=== PATIENT | female | born 1955 | race African-American/Black ===

== ENCOUNTER → 2017-09-19 | Outpatient (CLI) | payer OTHER ==
[~2017-09-19] MED LIST: ALBUTEROL SULFATE 0.083% NEB 2.5 MG/3 ML AMPUL NEB ONE
--- NOTE | 2017-09-19 13:44 | RADIOLOGY REPORT (SQ) ---
EXAM DESCRIPTION: CHEST PA/LAT COMPLETED DATE/TIME: 09/19/2017 1:18 pm REASON FOR STUDY: COUGH (R05) COMPARISON: None. EXAM PARAMETERS: NUMBER OF VIEWS: two views TECHNIQUE: Digital Frontal and Lateral radiographic views of the chest acquired. RADIATION DOSE: NA LIMITATIONS: none FINDINGS: LUNGS AND PLEURA: Diffuse pulmonary vascular congestion. No pleural effusions. No alveol ar infiltrates worrisome for edema or pneumonia. MEDIASTINUM AND HILAR STRUCTURES: Prominent central pulmonary arteries. HEART AND VASCULAR STRUCTURES: Moderate to marked cardiomegaly BONES: Diffuse thoracic spondylotic change HARDWARE: None in the chest. OTHER: No other significant finding. IMPRESSION: Moderate to marked cardiomegaly Diffuse pulmonary vascular congestion without alveolar or interstitial edema, or pleural effusions. TECHNICAL DOCUMENTATION: JOB ID: [id number] [employer]- All Rights Reserved
--- NOTE | 2017-09-19 15:58 | PULMONARY FUNCTION TEST ---
DATE OF SERVICE: 09/19/2016 THE VITAL CAPACITY IS SEVERELY DECREASED. THE EXPIRATORY FLOW RATES ARE SEVERELY DECREASED. THE FEV1/VC IS 73%, PREDICTED: 83% AFTER BRONCHODILATOR, EXPIRATORY FLOW RATES SHOW NO SIGNIFICANT CHANGE. IMPRESSION: GOOD PATIENT EFFORT. VERY SEVERE OBSTRUCTIVE DEFECT. A CO- EXISTING RESTRICTIVE COMPONENT CANNOT BE EXCLUDED WITHOUT LUNG VOLUME MEASUREMENTS. CC: PAU GALO MD > MTDD
== END ==
LOC: RT 11:42
PROVIDERS: ATTEND Family Medicine
DX: R09.02 Hypoxemia (principal); R06.02 Shortness of breath; R09.1 Pleurisy; R05 Cough; R53.83 Other fatigue
CPT/HCPCS: 71046; 94060

== ENCOUNTER → 2018-12-12 | Outpatient (CLI) | payer OTHER ==
--- NOTE | 2018-12-17 13:00 | WOMENS IMAGING REPORT ---
EXAM DESCRIPTION: 3D SCREENING MAMMO BILAT COMPLETED DATE/TIME: 12/17/2018 11:07 am REASON FOR STUDY: Z12.31 ROUTINE 3D BILATERAL SCREENING Z12.31 ENCNTR SCREEN MAMMOGRAM FOR MALIGNAN T NEOPLASM OF ANTONIO COMPARISON: 03/29/2016 and 11/19/2014. TECHNIQUE: Standard craniocaudal and mediolateral oblique views of each breast recorded using digita l acquisition and breast tomosynthesis. LIMITATIONS: None. FINDINGS: No masses, calcifications or architectural distortion. No areas of suspicion. Read with the assistance of CAD. .[facility] - R2 Cenova Version 1.3 .[facility] - R2 Cenova Version 2.1 .[facility] - R2 Cenova Version 2.4 .[facility] [place] Cenova Version 2.4 .[facility] - R2 [employer] Work[employer] Version 9.2 IMPRESSION: NORMAL MAMMOGRAM. BIRADS 1. BREAST DENSITY: b. There are scattered areas of fibroglandular density. BIRAD: 1 NEGATIVE RECOMMENDATION: ROUTINE SCREENING COMMENT: The patient has been notified of the results by letter per SA requirements. Additional no tification policies are in place for contacting patient with suspicious or incomplete findings. Quality ID #[id number]: The [employer] recommends an annual screening mammogram for women aged 40 years or over. This facility utilizes a reminder system to ensure that all patients receive reminder letters, and/or direct phone calls for appointments. This includes reminders for routine scr eening mammograms, diagnostic mammograms, or other Breast Imaging Interventions when appropriate. Th is patient will be placed in the appropriate reminder system. The [employer] (ACR) has developed recommendations for screening MRI of the breast s in certain patient populations, to be used in conjunction with mammography. Breast MRI surveillanc e may be appropriate for women with more than 20% lifetime risk of developing breast cancer as deter mined by genetic testing, significant family history of the disease, or history of mantle radiation f or Hodgkins Disease. ACR Practice Guidelines 2008. DBT Technology DBT is a type of tomographic mammography. With conventional mammography, overlapping breast tissue ma y make lesions difficult to detect, even with good compression. DBT uses an x-ray tube that rotates a round the breast, taking images at different angles. These images are then combined to create thin sl ices of the breast that the radiologist can view as a 3D reconstruction. The Stream5 unit can perform full-field digital mammograms (2D imaging); or DBT (3D imaging); or both, in a combination mode that quickly performs both the mammogram and the tomosynthesis scan while the breast is still compressed. PQRS 6045F: Fluoroscopic imaging is not utilized for breast tomosynthesis. TECHNICAL DOCUMENTATION: FINDING NUMBER: (1) ASSESSMENT: (1) JOB ID: [id number] [employer]- All Rights Reserved Reading location - IP/workstation name: [email or web address]
== END ==
LOC: WI 14:56
PROVIDERS: ATTEND Family Medicine
DX: Z12.31 Encounter for screening mammogram for malignant neoplasm of breast (principal)
CPT/HCPCS: 77063; 77067

== ENCOUNTER 2019-02-10 09:38 | Inpatient (IN) | payer OTHER ==
--- NOTE | 2019-02-10 10:25 | ER Document Report ---
ED General - General Chief Complaint: Trouble Walking Stated Complaint: FEELING OFF BALANCE Time Seen by Provider: 02/10/19 10:07 Primary Care Provider: PAU BYRNES MD [Primary Care Provider] - Follow up as needed Information source: Patient Notes: Patient is a 63-year-old female who states for the last 4 to 5 days her "energy has been off". She states some mornings she feels as if she has a lot of energy and on the morning she feels very sluggish. Patient denies any and all weakness , numbness, gait instability, feelings of the room spinning, or lightheadedness. She states that when she rode on the triage note "off balance" she meant "my whole body". Patient does have a history as recorded including being on oxygen at 3 L at baseline for the last year. She states she has no lung disease including COPD or asthma, but she states that she was noticed to have a decreased oxygen saturation when ambulating by the primary care physician Dr. Byrnes. Patient denies any headache, neck pain, chest pain, palpitations, abdominal pain, recent runny nose, congestion, cough, vomiting, or diarrhea. TRAVEL OUTSIDE OF THE [place] IN LAST 30 DAYS: No - Related Data Allergies/Adverse Reactions: No Known Allergies Allergy (Verified 02/10/19 09:39) Past Medical History - Social History Smoking Status: Never Smoker Family History: Reviewed & Not Pertinent Pulmonary Medical History: Reports: Hx COPD - Oxygen dependance at 3lpm Past Surgical History: Reports: Hx Thyroid Surgery - Thyroidectomy Review of Systems - Review of Systems Constitutional: denies: Fever EENT: denies: Eye discharge, Nose discharge Cardiovascular: denies: Chest pain, Palpitations Respiratory: denies: Short of breath Gastrointestinal: denies: Vomiting Genitourinary: denies: Dysuria Musculoskeletal: denies: Leg swelling Skin: Other - no hives. denies: Rash Neurological/Psychological: Other - no slurred speech -: Yes All other systems reviewed and negative Physical Exam - Vital signs Vitals: Temp Pulse Resp BP Pulse Ox 98.3 F 75 18 157/84 H 92 02/10/19 09:44 02/10/19 09:44 02/10/19 09:44 02/10/19 09:44 02/10/19 09:44 Notes: Reviewed vital signs and nursing note as charted by RN. CONSTITUTIONAL: Alert and oriented and responds appropriately to questions. Well-appearing; well-nourished HEAD: Normocephalic; atraumatic EYES: PERRL; Conjunctivae clear, full extraocular range of motion; no nystagmus; sclerae non-icteric ENT: Normal nose; no rhinorrhea; moist mucous membranes; pharynx without lesions noted NECK: Supple without meningismus; non-tender; no carotid bruit; no cervical lymphadenopathy, no masses CARD: Regular rate and rhythm; no murmurs; symmetric distal pulses RESP: Normal chest excursion without splinting or tachypnea; breath sounds clear and equal bilaterally; no wheezes, no rhonchi, no rales ABD/GI: Normal bowel sounds; non-distended; soft, non-tender; no palpable organomegaly or masses BACK: The back appears normal and is non-tender to palpation EXT: Normal ROM in all joints; non-tender to palpation; patient has some bilateral pierre induration with no obvious edema SKIN: No acute lesions noted NEURO: CN 2-12 intact; 5/5 bilateral upper and lower extremity strength with sensation intact to light touch PSYCH: The patient's mood and manner are appropriate. Grooming and personal hygiene are appropriate. Course - Re-evaluation Re-evalutation: 02/10/19 10:24 Given the history, physical, and vital signs as recorded, I will obtain basic labs, TSH level, troponin, EKG, and provide an x-ray of the chest. Patient has no focal neurological deficits, carotid bruits, and denies any weakness, numbness, lightheadedness, or vertigo. I do not believe any CT or MRI imaging is necessary at this moment. EKG shows heart of 69, normal sinus rhythm, normal axis, no ST elevation or depression. Incomplete right bundle branch block with an inverted T wave in lead V2 02/10/19 11:20 Initial labs as recorded. Patient denies any current symptomatology. 02/10/19 12:23 Troponin and labs as recorded. Elevated CO2. 02/10/19 13:09 Given the very elevated CO2, I am concerned about some increased lethargy secondary to hypercarbia. BNP is normal. X-ray of the chest as recorded. We will place the patient on BiPAP and order an ABG and reassess. - Vital Signs Vital signs: Temp Pulse Resp BP Pulse Ox 98.3 F 75 23 H 126/67 H 99 02/10/19 09:44 02/10/19 09:44 02/10/19 13:00 02/10/19 13:01 02/10/19 12:01 - Laboratory Result Diagrams: 02/10/19 11:15 02/10/19 11:15 Laboratory results interpreted by me: 02/10/19 02/10/19 02/10/19 11:15 11:15 11:15 Hgb 11.6 L Hct 35.6 L VBG pCO2 VBG HCO3 Sodium 145.1 H Chloride 91 L Carbon Dioxide 47 H* TSH 5.98 H 02/10/19 12:35 Hgb Hct VBG pCO2 97.3 H* VBG HCO3 51.9 H Sodium Chloride Carbon Dioxide TSH Critical Care Note - Critical Care Note Total time excluding time spent on procedures (mins): 35 Discharge - Discharge Clinical Impression: Hypercarbia, Lethargy Condition: Fair Disposition: ADMITTED INPATIENT Admitting Provider: Belen (Hospitalist) Unit Admitted: IMCU Referrals: PAU BYRNES MD [Primary Care Provider] - Follow up as needed
--- NOTE | 2019-02-10 10:58 | RADIOLOGY REPORT (SQ) ---
EXAM DESCRIPTION: CHEST 2 VIEWS COMPLETED DATE/TIME: 02/10/2019 10:36 am REASON FOR STUDY: 10; dizzi; lightheaded COMPARISON: 09/19/2017. NUMBER OF VIEWS: Two views. TECHNIQUE: Frontal and lateral radiographic views of the chest acquired. LIMITATIONS: None. FINDINGS: LUNGS AND PLEURA: No opacities, masses or pneumothorax. No pleural effusion. MEDIASTINUM AND HILAR STRUCTURES: No masses or contour abnormality. HEART AND VASCULAR STRUCTURES: Cardiac enlargement. Vascular congestion. BONES: No acute findings. Degenerative changes in the spine. HARDWARE: None in the chest. OTHER: No other significant finding. IMPRESSION: CARDIAC ENLARGEMENT. VASCULAR CONGESTION. TECHNICAL DOCUMENTATION: JOB ID: [id number] [employer]- All Rights Reserved Reading location - IP/workstation name: [email or web address]
[2019-02-10 11:29] LABS: ABSOLUTE EOSINOPHILS # (AUTO) 0.1 10^3/uL (0.0-0.6); ABSOLUTE LYMPHOCYTES (AUTO) 0.7 10^3/uL (0.5-4.7); ABSOLUTE MONOCYTES (AUTO) 0.4 10^3/uL (0.1-1.4); ABSOLUTE NEUT (AUTO) 3.7 10^3/uL (1.7-8.2); BASOPHILS % (AUTO) 0.4 % (0-2); EOSINOPHILS % (AUTO) 2.1 % (0-6); HEMATOCRIT 35.6 % (36.0-47.0); HEMOGLOBIN 11.6 g/dL (12.0-15.5); MEAN CORPUSCULAR HEMOGLOBIN 30.7 pg (27.0-33.4); MEAN CORPUSCULAR HGB CONC 32.7 g/dL (32.0-36.0); MEAN CORPUSCULAR VOLUME 94 fl (80-97); MONOCYTES % (AUTO) 7.9 % (3-13); PLATELET COUNT 283 10^3/uL (150-450); RED BLOOD COUNT 3.79 10^6/uL (3.72-5.28); RED CELL DISTRIBUTION WIDTH 13.7 % (11.5-14.0); SEGMENTED NEUTROPHILS % (AUTO) 74.6 % (42-78); TOTAL CELLS COUNTED % (AUTO) 100 %; WHITE BLOOD COUNT 4.9 10^3/uL (4.0-10.5)
[2019-02-10 11:55] LABS: BLOOD UREA NITROGEN 13 mg/dL (7-20); CALCIUM 8.9 mg/dL (8.4-10.2); CHLORIDE 91 mmol/L (98-107); GLUCOSE 94 mg/dL (75-110); POTASSIUM 3.9 mmol/L (3.6-5.0); SODIUM 145.1 mmol/L (137-145)
[2019-02-10 12:08] LABS: ANION GAP 7 (5-19)
[2019-02-10 12:09] LABS: CARBON DIOXIDE 47 mmol/L (22-30)
[2019-02-10 12:53] LABS: VENOUS BLOOD BASE EXCESS 20.9 mmol/L; VENOUS BLOOD HCO3 51.9 mmol/L (20-32); VENOUS BLOOD PH 7.35 (7.30-7.42)
[2019-02-10 12:59] LABS: VENOUS BLOOD PCO2 97.3 mmHg (35-63)
--- NOTE | 2019-02-10 13:12 | EKG REPORT ---
SEVERITY:- ABNORMAL ECG - SINUS RHYTHM PROBABLE LEFT ATRIAL ABNORMALITY INCOMPLETE RIGHT BUNDLE BRANCH BLOCK : Confirmed by: Cristóbal Murry MD 10-Feb-2019 13:11:28
[2019-02-10 13:51] LABS: ARTERIAL BLOOD BASE EXCESS 18.3 mmol/L; ARTERIAL BLOOD FIO2 3L; ARTERIAL BLOOD H2CO3 2.05 mmol/L (1.05-1.35); ARTERIAL BLOOD HCO3 45.9 mmol/L (20-24); ARTERIAL BLOOD O2 SATURATION 96.6 % (94-98); ARTERIAL BLOOD PCO2 68.2 mmHg (35-45); ARTERIAL BLOOD PH 7.45 (7.35-7.45); ARTERIAL BLOOD PO2 87.3 mmHg (80-100)
[2019-02-10 13:54] LABS: APPEARANCE,URINE SLIGHTLY-CLOUDY; BILIRUBIN,URINE NEGATIVE (NEGATIVE); COLOR,URINE YELLOW; GLUCOSE, URINE NEGATIVE (NEGATIVE); KETONES,URINE NEGATIVE (NEGATIVE); LEUKOCYTE ESTERASE,URINE NEGATIVE (NEGATIVE); NITRITE,URINE NEGATIVE (NEGATIVE); PROTEIN,URINE NEGATIVE (NEGATIVE)
[2019-02-10] MEDS ORDERED: HYDRALAZINE HCL INJ/PF 20 MG/1 ML SDV IV PRN (14:16)
--- NOTE | 2019-02-10 14:36 | PDOC H&P ---
History of Present Illness Admission Date/PCP: 02/10/19 13:31 PAU GALO MD Patient complains of: increased sleepiness History of Present Illness: ROSLYN RANGEL is a 63 year old female with a PMH of sleep apnea-untreated and not on CPAP, HTN, hypothyroidism and questionable COPD who was brought into to increased sleepiness. Patient says that she cannot really describe what she is feeling but she feels like she is "out of her comfort zone" in the past 4 days. She denies dizziness, shortness of breath or chest pain. She denies weakness. Her sister who is on the bedside says that she has noticed patient has been more sleepy than usual and has been less conversant at home. Upon encounter, patient awake and oriented x4. In the ER, work-up was remarkable for a VBG PCO2 of 97. Past Medical History Pulmonary Medical History: Reports: Chronic Obstructive Pulmonary Disease (COPD) - Oxygen dependance at 3lpm Social History Smoking Status: Never Smoker Family History Family History: Reviewed & Not Pertinent Parental Family History Reviewed: Yes - No premature CAD Children Family History Reviewed: No Sibling(s) Family History Reviewed.: No Medication/Allergy Allergies/Adverse Reactions: No Known Allergies Allergy (Verified 02/10/19 09:39) Review of Systems All systems: reviewed and no additional remarkable complaints except as stated - As mentioned in HPI Physical Exam Vital Signs: Temp Pulse Resp BP Pulse Ox 98.3 F 75 14 124/102 H 92 02/10/19 09:44 02/10/19 09:44 02/10/19 13:24 02/10/19 13:24 02/10/19 13:24 Intake & Output 02/09/19 02/10/19 02/11/19 06:59 06:59 06:59 Weight 348 lb 1.758 oz General appearance: PRESENT: no acute distress, well-developed, well-nourished Head exam: PRESENT: atraumatic, normocephalic Eye exam: PRESENT: conjunctiva pink, EOMI, PERRLA. ABSENT: scleral icterus Ear exam: PRESENT: normal external ear exam Neck exam: ABSENT: carotid bruit, JVD, lymphadenopathy, thyromegaly Respiratory exam: PRESENT: clear to auscultation yessenia. ABSENT: rales, rhonchi, wheezes Cardiovascular exam: PRESENT: RRR. ABSENT: diastolic murmur, rubs, systolic murmur Pulses: PRESENT: normal dorsalis pedis pul GI/Abdominal exam: PRESENT: normal bowel sounds, soft. ABSENT: distended, guarding, mass, organolmegaly, rebound, tenderness Rectal exam: PRESENT: deferred Neurological exam: PRESENT: alert, awake, oriented to person, oriented to place, oriented to time, oriented to situation, CN II-XII grossly intact. ABSENT: motor sensory deficit Results Laboratory Results: 02/10/19 11:15 02/10/19 11:15 02/10/19 02/10/19 02/10/19 11:15 11:15 11:15 WBC 4.9 RBC 3.79 Hgb 11.6 L Hct 35.6 L MCV 94 MCH 30.7 MCHC 32.7 RDW 13.7 Plt Count 283 Seg Neutrophils % 74.6 Lymphocytes % 15.0 Monocytes % 7.9 Eosinophils % 2.1 Basophils % 0.4 Absolute Neutrophils 3.7 Absolute Lymphocytes 0.7 Absolute Monocytes 0.4 Absolute Eosinophils 0.1 Absolute Basophils 0.0 Carbonic Acid HCO3/H2CO3 Ratio ABG pH ABG pCO2 ABG pO2 ABG HCO3 ABG O2 Saturation ABG Base Excess VBG pH VBG pCO2 VBG HCO3 VBG Base Excess FiO2 Sodium 145.1 H Potassium 3.9 Chloride 91 L Carbon Dioxide 47 H* Anion Gap 7 BUN 13 Creatinine 0.59 Est GFR ( Amer) > 60 Est GFR (Non-Af Amer) > 60 Glucose 94 Calcium 8.9 TSH 5.98 H Urine Color Urine Appearance Urine pH Ur Specific [place] Urine Protein Urine Glucose (UA) Urine Ketones Urine Blood Urine Nitrite Ur Leukocyte Esterase Urine WBC (Auto) Urine RBC (Auto) 02/10/19 02/10/19 02/10/19 12:35 13:32 13:40 WBC RBC Hgb Hct MCV MCH MCHC RDW Plt Count Seg Neutrophils % Lymphocytes % Monocytes % Eosinophils % Basophils % Absolute Neutrophils Absolute Lymphocytes Absolute Monocytes Absolute Eosinophils Absolute Basophils Carbonic Acid 2.05 H HCO3/H2CO3 Ratio 22:1 ABG pH 7.45 ABG pCO2 68.2 H ABG pO2 87.3 ABG HCO3 45.9 H ABG O2 Saturation 96.6 ABG Base Excess 18.3 VBG pH 7.35 VBG pCO2 97.3 H* VBG HCO3 51.9 H VBG Base Excess 20.9 FiO2 3L Sodium Potassium Chloride Carbon Dioxide Anion Gap BUN Creatinine Est GFR ( Amer) Est GFR (Non-Af Amer) Glucose Calcium TSH Urine Color YELLOW Urine Appearance SLIGHTLY-CLOUDY Urine pH 9.0 Ur Specific Clayton 1.020 Urine Protein NEGATIVE Urine Glucose (UA) NEGATIVE Urine Ketones NEGATIVE Urine Blood NEGATIVE Urine Nitrite NEGATIVE Ur Leukocyte Esterase NEGATIVE Urine WBC (Auto) 3 Urine RBC (Auto) 1 02/10/19 02/10/19 11:15 11:15 Troponin I < 0.012 NT-Pro-B Natriuret Pep 141 Impressions: Chest X-Ray 02/10/19 10:08 IMPRESSION: CARDIAC ENLARGEMENT. VASCULAR CONGESTION. Assessment and Plan - Diagnosis (1) Acute hypercapnic respiratory failure Is this a current diagnosis for this admission?: Yes Plan: Likely secondary to untreated chronic GILMA. As mentioned, patient says that she supposed to be on CPAP but is unable to afford the co-pay hence is not on any at home. ABG ordered. Will place patient on BiPAP. Will consult discharge planning for assistance. Questionable COPD. Patient denies prior COPD or asthma or prior smoking. She says her PCP suspected that she has COPD. Will do a bedside spirometry. She will need a possible PFT outpatient. (2) Lethargy Is this a current diagnosis for this admission?: Yes Plan: Likely related to hypercarbia. (3) Hypothyroidism Is this a current diagnosis for this admission?: Yes Plan: Resume Synthroid once home doses verified. (4) Hypertension Is this a current diagnosis for this admission?: Yes Plan: Resume home meds once verified. (5) Pulmonary congestion Is this a current diagnosis for this admission?: Yes Plan: Chest x-ray shows possible congestion. She has clear breath sounds at the moment. BNP normal. Give her low-dose Lasix. Will pursue routine echo to evaluate cardiac function due to long-standing untreated GILMA. - Time Time Spent with patient: 25-34 minutes
[2019-02-10 14:37] LABS: FREE T3 2.54 pg/mL (2.77-5.27); FREE T4 (FREE THYROXINE) 0.72 ng/dL (0.78-2.19)
--- NOTE | 2019-02-10 14:42 | ADVANCED CARE ---
- Diagnosis (1) Acute hypercapnic respiratory failure Diagnosis Current: Yes (2) Hypercarbia Diagnosis Current: Yes (3) Hypertension Diagnosis Current: Yes (4) Hypothyroidism Diagnosis Current: Yes (5) Lethargy Diagnosis Current: Yes (6) Pulmonary congestion Diagnosis Current: Yes Attendance: Discussed with patient. She says she is a full code and prefers chest compressions, defibrillation and mechanical ventilation if the need arises. She says that her daughter, Lauren is her surrogate decision maker. Resuscitation Status: Full Code
[2019-02-10] MEDS: HEPARIN SOD (PORCINE) 5,000 UNIT/ML 1 ML SYRINGE SUBCUT SCH (21:24)
[2019-02-10] MEDS: FUROSEMIDE INJ/PF 20 MG/2 ML SDV IV SCH (21:24)
[2019-02-11] MEDS: FUROSEMIDE INJ/PF 20 MG/2 ML SDV IV SCH ×2 (09:52→22:07)
[2019-02-11] MEDS: HEPARIN SOD (PORCINE) 5,000 UNIT/ML 1 ML SYRINGE SUBCUT SCH ×2 (09:56→22:07)
--- NOTE | 2019-02-11 15:34 | PDOC PROGRESS REPORT ---
Subjective Progress Note for:: 02/11/19 Subjective:: 63 year old female with a PMH of sleep apnea-untreated and not on CPAP, HTN, hypothyroidism and questionable COPD who was brought into to increased sleepiness. Patient says that she cannot really describe what she is feeling but she feels like she is "out of her comfort zone" in the past 4 days. She denies dizziness, shortness of breath or chest pain. She denies weakness. Her sister who is on the bedside says that she has noticed patient has been more sleepy than usual and has been less conversant at home. Upon encounter, patient awake and oriented x4. In the ER, work-up was remarkable for a VBG PCO2 of 97. 02/11/20197745-60-vzpe-old female with history of morbid obesity, sleep apnea noncompliant with CPAP admitted with increasing sleepiness VBG done in the emergency room shows PCO2 of 97. Patient said this morning she is feeling better. Requesting for physical therapy. she uses 3 L of oxygen at home. no Acute events in the last 24 hours and patient is afebrile. Reason For Visit: ACUTE HYPERCAPNIC RESPIRATORY FAILURE Physical Exam Vital Signs: Temp Pulse Resp BP Pulse Ox 98.3 F 65 24 H 163/85 H 100 02/11/19 12:00 02/11/19 12:00 02/11/19 12:00 02/11/19 12:00 02/11/19 12:00 Intake & Output 02/10/19 02/11/19 02/12/19 06:59 06:59 06:59 Intake Total 500 Balance 500 Weight 162.6 kg General appearance: PRESENT: no acute distress, obese Head exam: PRESENT: atraumatic Eye exam: PRESENT: PERRLA Neck exam: ABSENT: carotid bruit, JVD, lymphadenopathy, thyromegaly Respiratory exam: PRESENT: decreased breath sounds Cardiovascular exam: PRESENT: RRR. ABSENT: diastolic murmur, rubs, systolic murmur GI/Abdominal exam: PRESENT: normal bowel sounds, soft. ABSENT: distended, guarding, mass, organolmegaly, rebound, tenderness Rectal exam: PRESENT: deferred Extremities exam: PRESENT: full ROM, other - Chronic skin changes in the lower extremities with overgrown toenails.. ABSENT: calf tenderness, clubbing, pedal edema Neurological exam: PRESENT: alert, awake, oriented to person, oriented to place, oriented to time, oriented to situation, CN II-XII grossly intact. ABSENT: motor sensory deficit Psychiatric exam: PRESENT: appropriate affect, normal mood. ABSENT: homicidal ideation, suicidal ideation Results Laboratory Results: 02/10/19 11:15 02/10/19 11:15 02/10/19 02/10/19 11:15 11:15 Troponin I < 0.012 NT-Pro-B Natriuret Pep 141 Impressions: Chest X-Ray 02/10/19 10:08 IMPRESSION: CARDIAC ENLARGEMENT. VASCULAR CONGESTION. Assessment and Plan - Diagnosis (1) Acute hypercapnic respiratory failure Is this a current diagnosis for this admission?: Yes Plan: Likely secondary to untreated chronic GILMA. As mentioned, patient says that she supposed to be on CPAP but is unable to afford the co-pay hence is not on any at home. ABG ordered. Will place patient on BiPAP. Will consult discharge planning for assistance. Questionable COPD. Patient denies prior COPD or asthma or prior smoking. She says her PCP suspected that she has COPD. Will do a bedside spirometry. She will need a possible PfT outpatient. \\ 02/11/2019-patient admitted with acute hypercapnic respiratory failure with PCO2 of 97. It most likely secondary to morbid obesity associated with hypoventilation syndrome and noncompliance with CPAP. Presently she is using CPAP patient was strongly advised to use CPAP at home upon discharge. (2) Lethargy Is this a current diagnosis for this admission?: Yes Plan: Likely related to hypercarbia. 02/11/2019-lethargy due to hypercapnia is resolved. Patient is alert awake oriented communicating well. (3) Hypertension Is this a current diagnosis for this admission?: Yes Plan: Resume home meds once verified. 02/11/2019-patient's blood pressure today is 149/67 borderline high systolic blood pressure. Plan is to continue to closely monitor the blood pressure and to resume the home medications. (4) Hypothyroidism Is this a current diagnosis for this admission?: Yes Plan: Resume Synthroid once home doses verified. 02/11/2019-TSH is 5.98. Close to the normal limits. Plan to continue the present dose of levothyroxine. (5) Hypercarbia Is this a current diagnosis for this admission?: Yes Plan: 02/11/2019-hypercapnia most likely secondary to morbid obesity associated with hypoventilation syndrome. Patient needs to be compliant with CPAP machine at home. (6) Morbid obesity Is this a current diagnosis for this admission?: No Plan: 02/11/2019-patient's BMI is more than 61 diet exercise weight loss lifestyle modifications are discussed with the patient. Dietary consult is going to be requested. (7) Pulmonary congestion Is this a current diagnosis for this admission?: Yes Plan: Chest x-ray shows possible congestion. She has clear breath sounds at the moment. BNP normal. Give her low-dose Lasix. Will pursue routine echo to evaluate cardiac function due to long-standing untreated GILMA. 02/11/2019-chest x-ray initially shows pulmonary congestion presently on Lasix 20 mg IV twice a day to repeat the chest x-ray tomorrow. - Time Time Spent with patient: 25-34 minutes Anticipated discharge: Home
--- NOTE | 2019-02-11 16:31 | RADIOLOGY REPORT (SQ) ---
EXAM DESCRIPTION: CHEST SINGLE VIEW COMPLETED DATE/TIME: 02/11/2019 4:18 pm REASON FOR STUDY: pulm congestion COMPARISON: 02/10/2019 EXAM PARAMETERS: NUMBER OF VIEWS: One view. TECHNIQUE: Single frontal radiographic view of the chest acquired. RADIATION DOSE: NA LIMITATIONS: None. FINDINGS: LUNGS AND PLEURA: No opacities, masses or pneumothorax. No pleural effusion. MEDIASTINUM AND HILAR STRUCTURES: No masses. Contour normal. HEART AND VASCULAR STRUCTURES: Cardiomegaly, stable finding. Stable appearing pulmonary vascular co ngestion. Heart normal in size. Normal vasculature. BONES: No acute findings. HARDWARE: None in the chest. OTHER: No other significant finding. IMPRESSION: 1. As on the prior examination dated 02/10/2019, cardiomegaly. Stable appearing pulmona ry vascular congestion. TECHNICAL DOCUMENTATION: JOB ID: [id number] [employer]- All Rights Reserved Reading location - IP/workstation name: [email or web address]
--- NOTE | 2019-02-11 18:27 | XCELERA REPORT ---
[address] [address] Transthoracic Echocardiogram Report Name: ROSLYN RANGEL Age: 63 yrs Gender: Female : 1955 Patient Status: [facility] Date: 02/11/2019 10:01 AM Height: 64 in Weight: 358 lb BSA: 2.5 m2 Reason For Study: assess LVEF Ordering Physician: ERENDIRA JACOB Performed By: Pamela Pro Interpretation Summary Study quality fair. Lack of contrast opacification limits evaluation for intracardiac mass/thrombus. Mild LVH with normal LVEF at 55-60%. The right ventricle is normal in size and function. The transmitral spectral Doppler flow pattern is abnormal for age The aortic valve opens well. There is a mild amount of mitral regurgitation There is a trace amount of tricuspid regurgitation Right ventricular systolic pressure is normal. The aortic root is normal size. The inferior vena cava appeared normal MMode/2D Measurements & Calculations RVDd: 3.3 cm LVIDd: 5.4 cm FS: 30.4 % Ao root diam: IVSd: 1.0 cm LVIDs: 3.8 cm EDV(Teich): 3.0 cm LVPWd: 1.2 cm 143.3 ml Ao root area: ESV(Teich): 61.2 ml 7.0 cm2 EF(Teich): 57.3 % EDV(MOD-sp4): SV(MOD-sp4): 110.1 ml 67.2 ml ESV(MOD-sp4): 42.9 ml EF(MOD-sp4): 61.0 % Doppler Measurements & Calculations MV E max golden: MV dec slope: Ao V2 max: LV V1 max P.1 cm/sec 173.9 cm/sec 6.5 mmHg MV A max golden: 558.9 cm/sec2 Ao max P.1 mmHgLV V1 max: 100.7 cm/sec MV dec time: 127.1 cm/sec MV E/A: 1.3 0.23 sec LV dP/dt: 1890 mmHg/s PA V2 max: TR max golden: Pulm Sys Golden: 116.3 cm/sec 199.3 cm/sec 54.5 cm/sec PA max P.4 mmHgTR max P.9 mmHg Pulm Perales Golden: 57.4 cm/sec Pulm A Revs Golden: 19.3 cm/sec Pulm A Revs Dur: 0.11 sec Pulm S/D: 0.95 Left Ventricle The left ventricle is mildly dilated. There is mild concentric left ventricular hypertrophy. The left ventricular ejection fraction is normal. LV EF is 55-60%. The transmitral spectral Doppler flow pattern is abnormal for age. Right Ventricle The right ventricle is normal in size and function. Atria The right atrium is normal. The left atrial size is normal. Mitral Valve There is moderate mitral leaflet calcification. There is a mild amount of mitral regurgitation. Aortic Valve The aortic valve is not well visualized secondary to technical limitations. The aortic valve is mildly calcified. The aortic valve opens well. There is a peak gradient of 14.5 mm of Hg. Tricuspid Valve The tricuspid valve is not well visualized secondary to technical limitations. There is a trace amount of tricuspid regurgitation. Right ventricular systolic pressure is normal. Pulmonic Valve The pulmonic valve is not well visualized. Great Vessels The aortic root is normal size. The inferior vena cava appeared normal. Effusions Trace pericardial effusion cannot be excluded. : ERENDIRA JACOB > Eleazar Ulloa
[2019-02-11 22:52] LABS: ARTERIAL BLOOD BASE EXCESS 19.7 mmol/L; ARTERIAL BLOOD H2CO3 2.17 mmol/L (1.05-1.35); ARTERIAL BLOOD HCO3 47.5 mmol/L (20-24); ARTERIAL BLOOD O2 SATURATION 95.4 % (94-98); ARTERIAL BLOOD PH 7.44 (7.35-7.45); ARTERIAL BLOOD PO2 78.6 mmHg (80-100); ARTERIAL BLOOD TOTAL CO2 49.8 mmol/L (21-25)
[2019-02-11 22:56] LABS: ARTERIAL BLOOD FIO2 30%; ARTERIAL BLOOD PCO2 72.1 mmHg (35-45)
[2019-02-12 04:05] LABS: ABSOLUTE EOSINOPHILS # (AUTO) 0.1 10^3/uL (0.0-0.6); ABSOLUTE LYMPHOCYTES (AUTO) 0.9 10^3/uL (0.5-4.7); ABSOLUTE MONOCYTES (AUTO) 0.4 10^3/uL (0.1-1.4); ABSOLUTE NEUT (AUTO) 2.7 10^3/uL (1.7-8.2); BASOPHILS % (AUTO) 0.3 % (0-2); HEMATOCRIT 33.9 % (36.0-47.0); LYMPHOCYTES % (AUTO) 22.9 % (13-45); MEAN CORPUSCULAR HEMOGLOBIN 30.3 pg (27.0-33.4); MEAN CORPUSCULAR HGB CONC 32.6 g/dL (32.0-36.0); MEAN CORPUSCULAR VOLUME 93 fl (80-97); MONOCYTES % (AUTO) 9.4 % (3-13); PLATELET COUNT 252 10^3/uL (150-450); RED BLOOD COUNT 3.64 10^6/uL (3.72-5.28); RED CELL DISTRIBUTION WIDTH 13.7 % (11.5-14.0); SEGMENTED NEUTROPHILS % (AUTO) 64.4 % (42-78); TOTAL CELLS COUNTED % (AUTO) 100 %; WHITE BLOOD COUNT 4.1 10^3/uL (4.0-10.5)
[2019-02-12 04:24] LABS: ALANINE AMINOTRANSFERASE 12 U/L (9-52); ALKALINE PHOSPHATASE 51 U/L (38-126); ASPARTATE AMINO TRANSFERASE 10 U/L (14-36); BILIRUBIN,DIRECT 0.2 mg/dL (0.0-0.4); BILIRUBIN,TOTAL 0.4 mg/dL (0.2-1.3); BLOOD UREA NITROGEN 12 mg/dL (7-20); CALCIUM 8.8 mg/dL (8.4-10.2); CHLORIDE 90 mmol/L (98-107); GLUCOSE 90 mg/dL (75-110); POTASSIUM 3.7 mmol/L (3.6-5.0); SODIUM 141.1 mmol/L (137-145)
[2019-02-12 04:35] LABS: ANION GAP 4 (5-19)
[2019-02-12 04:36] LABS: CARBON DIOXIDE 47 mmol/L (22-30)
[2019-02-12] MEDS: LEVOTHYROXINE SODIUM 0.1 MG TABLET PO SCH (05:24)
[2019-02-12] MEDS: LEVOTHYROXINE SODIUM 0.075 MG TABLET PO SCH (05:24)
[2019-02-12] MEDS ORDERED: (PENDING PHARMACY ID) (Levothyroxine Sodium [Synthroid] 175 MCG) PO SCH (06:00)
[2019-02-12] MEDS ORDERED: (PENDING PHARMACY ID) (Telmisartan/Hydrochlorothiazid [Micardis Hct 80-25 Mg Tablet] 1 TAB PO SCH (10:00)
[2019-02-12] MEDS ORDERED: LOSARTAN POTASSIUM 50 MG TABLET PO SCH (10:00)
[2019-02-12] MEDS: FUROSEMIDE INJ/PF 20 MG/2 ML SDV IV SCH ×2 (10:55→21:43)
[2019-02-12] MEDS: HEPARIN SOD (PORCINE) 5,000 UNIT/ML 1 ML SYRINGE SUBCUT SCH ×2 (10:55→21:43)
[2019-02-12] MEDS: LOSARTAN POTASSIUM 50 MG TABLET PO SCH (10:55)
[2019-02-12] MEDS: HYDROCHLOROTHIAZIDE 25 MG TABLET PO SCH (10:56)
--- NOTE | 2019-02-12 12:50 | PDOC PROGRESS REPORT ---
Subjective Progress Note for:: 02/12/19 Subjective:: 63 year old female with a PMH of sleep apnea-untreated and not on CPAP, HTN, hypothyroidism and questionable COPD who was brought into to increased sleepiness. Patient says that she cannot really describe what she is feeling but she feels like she is "out of her comfort zone" in the past 4 days. She denies dizziness, shortness of breath or chest pain. She denies weakness. Her sister who is on the bedside says that she has noticed patient has been more sleepy than usual and has been less conversant at home. Upon encounter, patient awake and oriented x4. In the ER, work-up was remarkable for a VBG PCO2 of 97. 02/11/[id number]-gnuj-old female with history of morbid obesity, sleep apnea noncompliant with CPAP admitted with increasing sleepiness VBG done in the emergency room shows PCO2 of 97. Patient said this morning she is feeling better. Requesting for physical therapy. she uses 3 L of oxygen at home. no Acute events in the last 24 hours and patient is afebrile. 02/12/2019-no acute events in the last 24 hours. Patient is afebrile. Came in with confusion and some increased sleepiness because of the increased CO2. PCO2 the time of admission is a 97 today it was 72. Patient is alert and awake communicating well. She says she cannot afford a CPAP machine at home right now. tool planner is going to be consulted to assist in getting his CPAP supplies at home. The therapist try to do the pulmonary function tests the effort is unsuccessful because patient is unable to take deep breaths. Reason For Visit: ACUTE HYPERCAPNIC RESPIRATORY FAILURE Physical Exam Vital Signs: Temp Pulse Resp BP Pulse Ox 98.7 F 65 12 148/79 H 95 02/12/19 12:00 02/12/19 12:00 02/12/19 12:00 02/12/19 12:00 02/12/19 12:00 Intake & Output 02/11/19 02/12/19 02/13/19 06:59 06:59 06:59 Intake Total 500 1541 Balance 500 1541 Weight 162.6 kg 164.4 kg General appearance: PRESENT: no acute distress Head exam: PRESENT: atraumatic Eye exam: PRESENT: PERRLA Mouth exam: PRESENT: moist, tongue midline Neck exam: ABSENT: carotid bruit, JVD, lymphadenopathy, thyromegaly Respiratory exam: PRESENT: clear to auscultation yessenia. ABSENT: rales, rhonchi, wheezes Cardiovascular exam: PRESENT: RRR. ABSENT: diastolic murmur, rubs, systolic murmur GI/Abdominal exam: PRESENT: normal bowel sounds, soft. ABSENT: distended, guarding, mass, organolmegaly, rebound, tenderness Rectal exam: PRESENT: deferred Neurological exam: PRESENT: alert, awake, oriented to person, oriented to place, oriented to time, oriented to situation, CN II-XII grossly intact. ABSENT: motor sensory deficit Psychiatric exam: PRESENT: appropriate affect, normal mood. ABSENT: homicidal ideation, suicidal ideation Results Laboratory Results: 02/12/19 03:33 02/12/19 03:33 02/11/19 02/12/19 02/12/19 22:30 03:33 03:33 WBC 4.1 RBC 3.64 L Hgb 11.0 L Hct 33.9 L MCV 93 MCH 30.3 MCHC 32.6 RDW 13.7 Plt Count 252 Seg Neutrophils % 64.4 Lymphocytes % 22.9 Monocytes % 9.4 Eosinophils % 3.0 Basophils % 0.3 Absolute Neutrophils 2.7 Absolute Lymphocytes 0.9 Absolute Monocytes 0.4 Absolute Eosinophils 0.1 Absolute Basophils 0.0 Carbonic Acid 2.17 H HCO3/H2CO3 Ratio 21:1 ABG pH 7.44 ABG pCO2 72.1 H* ABG pO2 78.6 L ABG HCO3 47.5 H ABG O2 Saturation 95.4 ABG Base Excess 19.7 FiO2 30% Sodium 141.1 Potassium 3.7 Chloride 90 L Carbon Dioxide 47 H* Anion Gap 4 L BUN 12 Creatinine 0.65 Est GFR ( Amer) > 60 Est GFR (Non-Af Amer) > 60 Glucose 90 Calcium 8.8 Magnesium 1.4 L Total Bilirubin 0.4 AST 10 L ALT 12 Alkaline Phosphatase 51 Total Protein 7.0 Albumin 3.0 L 02/10/19 02/10/19 11:15 11:15 Troponin I < 0.012 NT-Pro-B Natriuret Pep 141 Impressions: Chest X-Ray 02/11/19 00:00 IMPRESSION: 1. As on the prior examination dated 02/10/2019, cardiomegaly. Stable appearing pulmonary vascular congestion. Assessment and Plan - Diagnosis (1) Acute hypercapnic respiratory failure Is this a current diagnosis for this admission?: Yes Plan: Likely secondary to untreated chronic GILMA. As mentioned, patient says that she supposed to be on CPAP but is unable to afford the co-pay hence is not on any at home. ABG ordered. Will place patient on BiPAP. Will consult discharge planning for assistance. Questionable COPD. Patient denies prior COPD or asthma or prior smoking. She says her PCP suspected that she has COPD. Will do a bedside spirometry. She will need a possible PfT outpatient. \\ 02/11/2019-patient admitted with acute hypercapnic respiratory failure with PCO2 of 97. It most likely secondary to morbid obesity associated with hypoventilation syndrome and noncompliance with CPAP. Presently she is using CPAP patient was strongly advised to use CPAP at home upon discharge. 02/12/[id number]-csbx-old female morbid obesity with hypoventilation syndrome came to the emergency room with confusion increasing sleepiness PCO2 at the time of admission is 97 latest ABG indicate PCO2 is 72 improving. Plan to do the motor function test today but unsuccessful because patient is unable to take deep breaths. (2) Lethargy Is this a current diagnosis for this admission?: Yes Plan: Likely related to hypercarbia. 02/11/2019-lethargy due to hypercapnia is resolved. Patient is alert awake oriented communicating well. 02/12/2019-lethargy is resolved. Patient is alert awake communicating well. (3) Hypertension Is this a current diagnosis for this admission?: Yes Plan: Resume home meds once verified. 02/11/2019-patient's blood pressure today is 149/67 borderline high systolic blood pressure. Plan is to continue to closely monitor the blood pressure and to resume the home medications. 02/12/2019-patient blood pressure today is 165/78. Borderline high patient is presently on low-sodium diet diet exercise weight loss are recommended. (4) Hypothyroidism Is this a current diagnosis for this admission?: Yes (5) Hypercarbia Is this a current diagnosis for this admission?: Yes Plan: 02/11/2019-hypercapnia most likely secondary to morbid obesity associated with hypoventilation syndrome. Patient needs to be compliant with CPAP machine at home. 02/12/2019-hypercapnia is improving latest ABG indicates PCO2 of 72. Patient is continue to encourage to wear BiPAP most of the day and especially during the sleep. (6) Morbid obesity Is this a current diagnosis for this admission?: No (7) Pulmonary congestion Is this a current diagnosis for this admission?: Yes Plan: Chest x-ray shows possible congestion. She has clear breath sounds at the moment. BNP normal. Give her low-dose Lasix. Will pursue routine echo to evaluate cardiac function due to long-standing untreated GILMA. 02/11/2019-chest x-ray initially shows pulmonary congestion presently on Lasix 20 mg IV twice a day to repeat the chest x-ray tomorrow. 02/12/2019-chest x-ray shows cardiomegaly with persistent pulmonary congestion present on Lasix 40 mg IV twice a day. Echocardiogram was done yesterday shows EF of 55 to 60%. Normal left ventricular ejection fraction. Patient may have a chronic diastolic heart failure. - Time Time Spent with patient: 25-34 minutes Medications reviewed and adjusted accordingly: Yes Anticipated discharge: Home
[2019-02-13] MEDS: LEVOTHYROXINE SODIUM 0.1 MG TABLET PO SCH ×2 (05:26→06:00)
[2019-02-13] MEDS: LEVOTHYROXINE SODIUM 0.075 MG TABLET PO SCH ×2 (05:26→06:00)
[2019-02-13] MEDS: LOSARTAN POTASSIUM 50 MG TABLET PO SCH (09:53)
[2019-02-13] MEDS: HYDROCHLOROTHIAZIDE 25 MG TABLET PO SCH (09:55)
[2019-02-13] MEDS: HEPARIN SOD (PORCINE) 5,000 UNIT/ML 1 ML SYRINGE SUBCUT SCH ×2 (09:56→21:57)
--- NOTE | 2019-02-13 12:05 | PDOC PROGRESS REPORT ---
Subjective Progress Note for:: 02/13/19 Subjective:: 63 year old female with a PMH of sleep apnea-untreated and not on CPAP, HTN, hypothyroidism and questionable COPD who was brought into to increased sleepiness. Patient says that she cannot really describe what she is feeling but she feels like she is "out of her comfort zone" in the past 4 days. She denies dizziness, shortness of breath or chest pain. She denies weakness. Her sister who is on the bedside says that she has noticed patient has been more sleepy than usual and has been less conversant at home. Upon encounter, patient awake and oriented x4. In the ER, work-up was remarkable for a VBG PCO2 of 97. 02/11/[id number]-azsk-old female with history of morbid obesity, sleep apnea noncompliant with CPAP admitted with increasing sleepiness VBG done in the emergency room shows PCO2 of 97. Patient said this morning she is feeling better. Requesting for physical therapy. she uses 3 L of oxygen at home. no Acute events in the last 24 hours and patient is afebrile. 02/12/2019-no acute events in the last 24 hours. Patient is afebrile. Came in with confusion and some increased sleepiness because of the increased CO2. PCO2 the time of admission is a 97 today it was 72. Patient is alert and awake communicating well. She says she cannot afford a CPAP machine at home right now. community planner is going to be consulted to assist in getting his CPAP supplies at home. The therapist try to do the pulmonary function tests the effort is unsuccessful because patient is unable to take deep breaths. 02/13/2019-no acute events in the last 24 hours. Patient is afebrile. We are going to repeat the ABG to check her PCO2 level. Reason For Visit: ACUTE HYPERCAPNIC RESPIRATORY FAILURE Physical Exam Vital Signs: Temp Pulse Resp BP Pulse Ox 97.5 F 67 19 127/61 H 98 02/13/19 00:00 02/13/19 07:00 02/13/19 04:59 02/13/19 00:00 02/13/19 04:59 Intake & Output 02/12/19 02/13/19 02/14/19 06:59 06:59 06:59 Intake Total 1541 1127 Balance 1541 1127 Weight 164.4 kg 166.3 kg General appearance: PRESENT: no acute distress, morbidly obese Head exam: PRESENT: atraumatic Eye exam: PRESENT: PERRLA Mouth exam: PRESENT: moist, tongue midline Teeth exam: PRESENT: poor dentation Neck exam: ABSENT: carotid bruit, JVD, lymphadenopathy, thyromegaly Respiratory exam: PRESENT: decreased breath sounds Cardiovascular exam: PRESENT: RRR. ABSENT: diastolic murmur, rubs, systolic murmur GI/Abdominal exam: PRESENT: normal bowel sounds, soft. ABSENT: distended, guarding, mass, organolmegaly, rebound, tenderness Rectal exam: PRESENT: deferred Extremities exam: PRESENT: other - Chronic skin changes in the lower extremities. Neurological exam: PRESENT: alert, awake, oriented to person, oriented to place, oriented to time, oriented to situation, CN II-XII grossly intact. ABSENT: motor sensory deficit Psychiatric exam: PRESENT: appropriate affect, normal mood. ABSENT: homicidal ideation, suicidal ideation Results Laboratory Results: 02/12/19 03:33 02/12/19 03:33 02/10/19 02/10/19 11:15 11:15 Troponin I < 0.012 NT-Pro-B Natriuret Pep 141 Impressions: Chest X-Ray 02/11/19 00:00 IMPRESSION: 1. As on the prior examination dated 02/10/2019, cardiomegaly. Stable appearing pulmonary vascular congestion. Assessment and Plan - Diagnosis (1) Acute hypercapnic respiratory failure Is this a current diagnosis for this admission?: Yes Plan: Likely secondary to untreated chronic GILMA. As mentioned, patient says that she supposed to be on CPAP but is unable to afford the co-pay hence is not on any at home. ABG ordered. Will place patient on BiPAP. Will consult discharge planning for assistance. Questionable COPD. Patient denies prior COPD or asthma or prior smoking. She says her PCP suspected that she has COPD. Will do a bedside spirometry. She will need a possible PfT outpatient. \\ 02/11/2019-patient admitted with acute hypercapnic respiratory failure with PCO2 of 97. It most likely secondary to morbid obesity associated with hypoventilation syndrome and noncompliance with CPAP. Presently she is using CPAP patient was strongly advised to use CPAP at home upon discharge. 02/12/[id number]-obwl-old female morbid obesity with hypoventilation syndrome came to the emergency room with confusion increasing sleepiness PCO2 at the time of admission is 97 latest ABG indicate PCO2 is 72 improving. Plan to do the motor function test today but unsuccessful because patient is unable to take deep breaths. 02/13/[id number]-cioq-old female with morbid obesity with BMI of more than 62 and obesity DC associated hypoventilation syndrome syndrome admitted with increasing sleepiness and drowsiness. The latest ABG shows PCO2 of 72 improved from 97. She is doing much better unable to do the pulmonary function test yesterday. Plan is to repeat the ABG today to check the PCO2 levels. (2) Lethargy Is this a current diagnosis for this admission?: Yes (3) Hypertension Is this a current diagnosis for this admission?: Yes Plan: Resume home meds once verified. 02/11/2019-patient's blood pressure today is 149/67 borderline high systolic blood pressure. Plan is to continue to closely monitor the blood pressure and to resume the home medications. 02/12/2019-patient blood pressure today is 165/78. Borderline high patient is presently on low-sodium diet diet exercise weight loss are recommended. 02/13/2019-blood pressure today is 127/67 stable. Plan is to continue the present management. (4) Hypothyroidism Is this a current diagnosis for this admission?: Yes (5) Hypercarbia Is this a current diagnosis for this admission?: Yes Plan: 02/11/2019-hypercapnia most likely secondary to morbid obesity associated with hypoventilation syndrome. Patient needs to be compliant with CPAP machine at home. 02/12/2019-hypercapnia is improving latest ABG indicates PCO2 of 72. Patient is continue to encourage to wear BiPAP most of the day and especially during the sleep. 02/13/2019-latest ABG shows PCO2 of 72 plan please repeat the ABG today and patient is presently on a BiPAP. (6) Morbid obesity Is this a current diagnosis for this admission?: No (7) Pulmonary congestion Is this a current diagnosis for this admission?: Yes - Time Time Spent with patient: 25-34 minutes Medications reviewed and adjusted accordingly: Yes Anticipated discharge: Home
[2019-02-13 14:13] LABS: ARTERIAL BLOOD BASE EXCESS 14.5 mmol/L; ARTERIAL BLOOD H2CO3 1.95 mmol/L (1.05-1.35); ARTERIAL BLOOD HCO3 41.8 mmol/L (20-24); ARTERIAL BLOOD O2 SATURATION 93.7 % (94-98); ARTERIAL BLOOD PCO2 64.9 mmHg (35-45); ARTERIAL BLOOD PH 7.43 (7.35-7.45); ARTERIAL BLOOD PO2 69.3 mmHg (80-100); ARTERIAL BLOOD TOTAL CO2 43.8 mmol/L (21-25)
[2019-02-13 14:14] LABS: ARTERIAL BLOOD FIO2 30%
[2019-02-14] MEDS: LEVOTHYROXINE SODIUM 0.075 MG TABLET PO SCH (06:04)
[2019-02-14] MEDS: LEVOTHYROXINE SODIUM 0.1 MG TABLET PO SCH (06:05)
[2019-02-14] MEDS: HYDROCHLOROTHIAZIDE 25 MG TABLET PO SCH (08:59)
[2019-02-14] MEDS: HEPARIN SOD (PORCINE) 5,000 UNIT/ML 1 ML SYRINGE SUBCUT SCH ×2 (09:00→21:45)
[2019-02-14] MEDS: LOSARTAN POTASSIUM 50 MG TABLET PO SCH (09:00)
--- NOTE | 2019-02-14 10:43 | PDOC PROGRESS REPORT ---
Subjective Progress Note for:: 02/14/19 Subjective:: 63 year old female with a PMH of sleep apnea-untreated and not on CPAP, HTN, hypothyroidism and questionable COPD who was brought into to increased sleepiness. Patient says that she cannot really describe what she is feeling but she feels like she is "out of her comfort zone" in the past 4 days. She denies dizziness, shortness of breath or chest pain. She denies weakness. Her sister who is on the bedside says that she has noticed patient has been more sleepy than usual and has been less conversant at home. Upon encounter, patient awake and oriented x4. In the ER, work-up was remarkable for a VBG PCO2 of 97. 02/11/[id number]-nwcm-old female with history of morbid obesity, sleep apnea noncompliant with CPAP admitted with increasing sleepiness VBG done in the emergency room shows PCO2 of 97. Patient said this morning she is feeling better. Requesting for physical therapy. she uses 3 L of oxygen at home. no Acute events in the last 24 hours and patient is afebrile. 02/12/2019-no acute events in the last 24 hours. Patient is afebrile. Came in with confusion and some increased sleepiness because of the increased CO2. PCO2 the time of admission is a 97 today it was 72. Patient is alert and awake communicating well. She says she cannot afford a CPAP machine at home right now. planner/scheduler is going to be consulted to assist in getting his CPAP supplies at home. The therapist try to do the pulmonary function tests the effort is unsuccessful because patient is unable to take deep breaths. 02/13/2019-no acute events in the last 24 hours. Patient is afebrile. We are going to repeat the ABG to check her PCO2 level. 02/14/[id number]-omil-old female with history of morbid obesity BMI more than 65 and obesity associated hypoventilation syndrome admitted with CO2 retention with PCO2 of 97 leading to increasing sleepiness and drowsiness. She is requiring BiPAP during the hospital stay. ABG done yesterday shows PCO2 of 65. Patient i n my opinion need a CPAP at home. mission worker is working to have the patient for the home supplies. Reason For Visit: ACUTE HYPERCAPNIC RESPIRATORY FAILURE Physical Exam Vital Signs: Temp Pulse Resp BP Pulse Ox 97.3 F 63 18 110/51 L 95 02/14/19 07:30 02/14/19 07:00 02/14/19 08:25 02/14/19 07:30 02/14/19 08:25 Intake & Output 02/13/19 02/14/19 02/15/19 06:59 06:59 06:59 Intake Total 1127 1216 Balance 1127 1216 Weight 166.3 kg 165.3 kg General appearance: PRESENT: no acute distress, morbidly obese Head exam: PRESENT: atraumatic Eye exam: PRESENT: PERRLA Teeth exam: PRESENT: poor dentation Neck exam: ABSENT: carotid bruit, JVD, lymphadenopathy, thyromegaly Respiratory exam: PRESENT: decreased breath sounds Cardiovascular exam: PRESENT: RRR. ABSENT: diastolic murmur, rubs, systolic murmur GI/Abdominal exam: PRESENT: normal bowel sounds, soft. ABSENT: distended, guarding, mass, organolmegaly, rebound, tenderness Rectal exam: PRESENT: deferred Extremities exam: PRESENT: full ROM, other - chronic changes in the lower extremities.. ABSENT: calf tenderness, clubbing, pedal edema Neurological exam: PRESENT: alert, awake, oriented to person, oriented to place, oriented to time, oriented to situation, CN II-XII grossly intact. ABSENT: motor sensory deficit Psychiatric exam: PRESENT: appropriate affect, normal mood. ABSENT: homicidal ideation, suicidal ideation Results Laboratory Results: 02/12/19 03:33 02/12/19 03:33 02/13/19 13:50 Carbonic Acid 1.95 H HCO3/H2CO3 Ratio 21:1 ABG pH 7.43 ABG pCO2 64.9 H ABG pO2 69.3 L ABG HCO3 41.8 H ABG O2 Saturation 93.7 L ABG Base Excess 14.5 FiO2 30% 02/10/19 02/10/19 11:15 11:15 Troponin I < 0.012 NT-Pro-B Natriuret Pep 141 Impressions: Chest X-Ray 02/11/19 00:00 IMPRESSION: 1. As on the prior examination dated 02/10/2019, cardiomegaly. Stable appearing pulmonary vascular congestion. Assessment and Plan - Diagnosis (1) Acute hypercapnic respiratory failure Is this a current diagnosis for this admission?: Yes Plan: Likely secondary to untreated chronic GILMA. As mentioned, patient says that she supposed to be on CPAP but is unable to afford the co-pay hence is not on any at home. ABG ordered. Will place patient on BiPAP. Will consult discharge planning for assistance. Questionable COPD. Patient denies prior COPD or asthma or prior smoking. She says her PCP suspected that she has COPD. Will do a bedside spirometry. She will need a possible PfT outpatient. \\ 02/11/2019-patient admitted with acute hypercapnic respiratory failure with PCO2 of 97. It most likely secondary to morbid obesity associated with hypoventilation syndrome and noncompliance with CPAP. Presently she is using CPAP patient was strongly advised to use CPAP at home upon discharge. 02/12/[id number]-bsda-old female morbid obesity with hypoventilation syndrome came to the emergency room with confusion increasing sleepiness PCO2 at the time of admission is 97 latest ABG indicate PCO2 is 72 improving. Plan to do the motor function test today but unsuccessful because patient is unable to take deep breaths. 02/13/[id number]-zpvz-old female with morbid obesity with BMI of more than 62 and obesity DC associated hypoventilation syndrome syndrome admitted with increasing sleepiness and drowsiness. The latest ABG shows PCO2 of 72 improved from 97. She is doing much better unable to do the pulmonary function test yesterday. Plan is to repeat the ABG today to check the PCO2 levels. 02/14/[id number]-mdjh-old female with morbid obesity and hypoventilation syndrome admitted with PCO2 of 97 she is supposed to be on CPAP at home but as per the patient it cost her too much and she cannot afford it. During the hospital stay she is on BiPAP most of the time. ABG done yesterday shows improvement of PCO2 65. mission worker consult was requested to help the patient to get home supplies. (2) Lethargy Is this a current diagnosis for this admission?: Yes (3) Hypertension Is this a current diagnosis for this admission?: Yes Plan: Resume home meds once verified. 02/11/2019-patient's blood pressure today is 149/67 borderline high systolic bloo d pressure. Plan is to continue to closely monitor the blood pressure and to resume the home medications. 02/12/2019-patient blood pressure today is 165/78. Borderline high patient is presently on low-sodium diet diet exercise weight loss are recommended. 02/13/2019-blood pressure today is 127/67 stable. Plan is to continue the present management. 02/14/2019-patient blood pressure today is 129/77. Stable. Weight loss was advised diet, exercise and diet modifications are advised. Dietary consult was also requested. (4) Hypothyroidism Is this a current diagnosis for this admission?: Yes (5) Hypercarbia Is this a current diagnosis for this admission?: Yes Plan: 02/11/2019-hypercapnia most likely secondary to morbid obesity associated with hypoventilation syndrome. Patient needs to be compliant with CPAP machine at home. 02/12/2019-hypercapnia is improving latest ABG indicates PCO2 of 72. Patient is continue to encourage to wear BiPAP most of the day and especially during the sleep. 02/13/2019-latest ABG shows PCO2 of 72 plan please repeat the ABG today and patient is presently on a BiPAP. 02/14/2019-ABG done yesterday shows PCO2 of 65 improved to the PCO2 levels at the time of admission. Hypercapnia most likely secondary to hypoventilation syndrome secondary to morbid obesity. (6) Morbid obesity Is this a current diagnosis for this admission?: No (7) Pulmonary congestion Is this a current diagnosis for this admission?: Yes - Time Time Spent with patient: 25-34 minutes Medications reviewed and adjusted accordingly: Yes Anticipated discharge: Home
[2019-02-15 04:13] LABS: ABSOLUTE EOSINOPHILS # (AUTO) 0.2 10^3/uL (0.0-0.6); ABSOLUTE MONOCYTES (AUTO) 0.4 10^3/uL (0.1-1.4); ABSOLUTE NEUT (AUTO) 3.3 10^3/uL (1.7-8.2); BASOPHILS % (AUTO) 0.4 % (0-2); EOSINOPHILS % (AUTO) 3.2 % (0-6); HEMATOCRIT 35.2 % (36.0-47.0); HEMOGLOBIN 11.5 g/dL (12.0-15.5); LYMPHOCYTES % (AUTO) 20.3 % (13-45); MEAN CORPUSCULAR HEMOGLOBIN 30.6 pg (27.0-33.4); MEAN CORPUSCULAR HGB CONC 32.6 g/dL (32.0-36.0); MEAN CORPUSCULAR VOLUME 94 fl (80-97); MONOCYTES % (AUTO) 8.8 % (3-13); PLATELET COUNT 236 10^3/uL (150-450); RED BLOOD COUNT 3.75 10^6/uL (3.72-5.28); RED CELL DISTRIBUTION WIDTH 13.4 % (11.5-14.0); SEGMENTED NEUTROPHILS % (AUTO) 67.3 % (42-78); TOTAL CELLS COUNTED % (AUTO) 100 %; WHITE BLOOD COUNT 4.9 10^3/uL (4.0-10.5)
[2019-02-15 04:38] LABS: ALANINE AMINOTRANSFERASE 16 U/L (9-52); ALBUMIN 3.1 g/dL (3.5-5.0); ALKALINE PHOSPHATASE 52 U/L (38-126); ASPARTATE AMINO TRANSFERASE 15 U/L (14-36); BILIRUBIN,DIRECT 0.2 mg/dL (0.0-0.4); BILIRUBIN,TOTAL 0.3 mg/dL (0.2-1.3); BLOOD UREA NITROGEN 11 mg/dL (7-20); CALCIUM 8.6 mg/dL (8.4-10.2); CHLORIDE 90 mmol/L (98-107); GLUCOSE 91 mg/dL (75-110); SODIUM 139.8 mmol/L (137-145); TOTAL PROTEIN 7.2 g/dL (6.3-8.2)
[2019-02-15 04:44] LABS: ANION GAP 5 (5-19)
[2019-02-15 04:45] LABS: CARBON DIOXIDE 45 mmol/L (22-30)
[2019-02-15] MEDS: LEVOTHYROXINE SODIUM 0.1 MG TABLET PO SCH (06:07)
[2019-02-15] MEDS: LEVOTHYROXINE SODIUM 0.075 MG TABLET PO SCH (06:07)
[2019-02-15] MEDS: LOSARTAN POTASSIUM 50 MG TABLET PO SCH (09:00)
[2019-02-15] MEDS: HEPARIN SOD (PORCINE) 5,000 UNIT/ML 1 ML SYRINGE SUBCUT SCH ×2 (09:00→21:29)
[2019-02-15] MEDS: HYDROCHLOROTHIAZIDE 25 MG TABLET PO SCH (09:00)
--- NOTE | 2019-02-15 12:27 | PDOC PROGRESS REPORT ---
Subjective Progress Note for:: 02/15/19 Subjective:: 63 year old female with a PMH of sleep apnea-untreated and not on CPAP, HTN, hypothyroidism and questionable COPD who was brought into to increased sleepiness. Patient says that she cannot really describe what she is feeling but she feels like she is "out of her comfort zone" in the past 4 days. She denies dizziness, shortness of breath or chest pain. She denies weakness. Her sister who is on the bedside says that she has noticed patient has been more sleepy than usual and has been less conversant at home. Upon encounter, patient awake and oriented x4. In the ER, work-up was remarkable for a VBG PCO2 of 97. 02/11/[id number]-bftf-old female with history of morbid obesity, sleep apnea noncompliant with CPAP admitted with increasing sleepiness VBG done in the emergency room shows PCO2 of 97. Patient said this morning she is feeling better. Requesting for physical therapy. she uses 3 L of oxygen at home. no Acute events in the last 24 hours and patient is afebrile. 02/12/2019-no acute events in the last 24 hours. Patient is afebrile. Came in with confusion and some increased sleepiness because of the increased CO2. PCO2 the time of admission is a 97 today it was 72. Patient is alert and awake communicating well. She says she cannot afford a CPAP machine at home right now. land use planner is going to be consulted to assist in getting his CPAP supplies at home. The therapist try to do the pulmonary function tests the effort is unsuccessful because patient is unable to take deep breaths. 02/13/2019-no acute events in the last 24 hours. Patient is afebrile. We are going to repeat the ABG to check her PCO2 level. 02/14/[id number]-ukyv-old female with history of morbid obesity BMI more than 65 and obesity associated hypoventilation syndrome admitted with CO2 retention with PCO2 of 97 leading to increasing sleepiness and drowsiness. She is requiring BiPAP during the hospital stay. ABG done yesterday shows PCO2 of 65. Patient i n my opinion need a CPAP at home. labor relations worker is working to have the patient for the home supplies. 02/15/2019- 02/15/[id number]-ynag-old female with morbid obesity hypoventilation syndrome admitted with increasing sleepiness and drowsiness on the VBG in the emergency room shows PCO2 of 97 she is requiring BiPAP in the hospital stay. Latest bicarb in the chemistry is 45. Improving. She needed either CPAP or BiPAP to go home. labor relations worker Zehra spoke to me and it looks like pt is unable to get CPAP over the weekend. pt is comfortable in the chair communicating well. Reason For Visit: ACUTE HYPERCAPNIC RESPIRATORY FAILURE Physical Exam Vital Signs: Temp Pulse Resp BP Pulse Ox 97.4 F 58 L 16 141/65 H 97 02/15/19 08:00 02/15/19 08:00 02/15/19 08:00 02/15/19 08:00 02/15/19 08:00 Intake & Output 02/14/19 02/15/19 02/16/19 06:59 06:59 06:59 Intake Total 1216 720 Balance 1216 720 Weight 165.3 kg 166.2 kg General appearance: PRESENT: no acute distress, morbidly obese Head exam: PRESENT: atraumatic Eye exam: PRESENT: PERRLA Mouth exam: PRESENT: moist, tongue midline Teeth exam: PRESENT: poor dentation Neck exam: ABSENT: carotid bruit, JVD, lymphadenopathy, thyromegaly Respiratory exam: PRESENT: decreased breath sounds Cardiovascular exam: PRESENT: RRR. ABSENT: diastolic murmur, rubs, systolic murmur GI/Abdominal exam: PRESENT: normal bowel sounds, soft. ABSENT: distended, guarding, mass, organolmegaly, rebound, tenderness Rectal exam: PRESENT: deferred Extremities exam: PRESENT: full ROM. ABSENT: calf tenderness, clubbing, pedal edema Neurological exam: PRESENT: alert, awake, oriented to person, oriented to place, oriented to time, oriented to situation, CN II-XII grossly intact. ABSENT: motor sensory deficit Psychiatric exam: PRESENT: appropriate affect, normal mood. ABSENT: homicidal ideation, suicidal ideation Results Laboratory Results: 02/15/19 03:58 02/15/19 03:58 02/15/19 02/15/19 03:58 03:58 WBC 4.9 RBC 3.75 Hgb 11.5 L Hct 35.2 L MCV 94 MCH 30.6 MCHC 32.6 RDW 13.4 Plt Count 236 Seg Neutrophils % 67.3 Lymphocytes % 20.3 Monocytes % 8.8 Eosinophils % 3.2 Basophils % 0.4 Absolute Neutrophils 3.3 Absolute Lymphocytes 1.0 Absolute Monocytes 0.4 Absolute Eosinophils 0.2 Absolute Basophils 0.0 Sodium 139.8 Potassium 4.0 Chloride 90 L Carbon Dioxide 45 H* Anion Gap 5 BUN 11 Creatinine 0.57 Est GFR ( Amer) > 60 Est GFR (Non-Af Amer) > 60 Glucose 91 Calcium 8.6 Magnesium 1.7 Total Bilirubin 0.3 AST 15 ALT 16 Alkaline Phosphatase 52 Total Protein 7.2 Albumin 3.1 L 02/10/19 02/10/19 11:15 11:15 Troponin I < 0.012 NT-Pro-B Natriuret Pep 141 Impressions: Chest X-Ray 02/11/19 00:00 IMPRESSION: 1. As on the prior examination dated 02/10/2019, cardiomegaly. Stable appearing pulmonary vascular congestion. Assessment and Plan - Diagnosis (1) Acute hypercapnic respiratory failure Is this a current diagnosis for this admission?: Yes Plan: Likely secondary to untreated chronic GILMA. As mentioned, patient says that she supposed to be on CPAP but is unable to afford the co-pay hence is not on any at home. ABG ordered. Will place patient on BiPAP. Will consult discharge planning for assistance. Questionable COPD. Patient denies prior COPD or asthma or prior smoking. She says her PCP suspected that she has COPD. Will do a bedside spirometry. She will need a possible PfT outpatient. \\ 02/11/2019-patient admitted with acute hypercapnic respiratory failure with PCO2 of 97. It most likely secondary to morbid obesity associated with hypoventilation syndrome and noncompliance with CPAP. Presently she is using CPAP patient was strongly advised to use CPAP at home upon discharge. 02/12/[id number]-tafr-old female morbid obesity with hypoventilation syndrome came to the emergency room with confusion increasing sleepiness PCO2 at the time of admission is 97 latest ABG indicate PCO2 is 72 improving. Plan to do the motor function test today but unsuccessful because patient is unable to take deep b reaths. 02/13/[id number]-zlkj-old female with morbid obesity with BMI of more than 62 and obesity DC associated hypoventilation syndrome syndrome admitted with increasing sleepiness and drowsiness. The latest ABG shows PCO2 of 72 improved from 97. She is doing much better unable to do the pulmonary function test yesterday. Plan is to repeat the ABG today to check the PCO2 levels. 02/14/[id number]-xofu-old female with morbid obesity and hypoventilation syndrome admitted with PCO2 of 97 she is supposed to be on CPAP at home but as per the patient it cost her too much and she cannot afford it. During the hospital stay she is on BiPAP most of the time. ABG done yesterday shows improvement of PCO2 65. labor relations worker consult was requested to help the patient to get home supplies. 02/15/2019-no acute events in last 24 hours. Patient is afebrile. PCO2 in the chemistry is 45. Pulse ox is 99% on BiPAP. Patient is to go home on CPAP at home. (2) Lethargy Is this a current diagnosis for this admission?: Yes (3) Hypertension Is this a current diagnosis for this admission?: Yes Plan: Resume home meds once verified. 02/11/2019-patient's blood pressure today is 149/67 borderline high systolic blood pressure. Plan is to continue to closely monitor the blood pressure and to resume the home medications. 02/12/2019-patient blood pressure today is 165/78. Borderline high patient is presently on low-sodium diet diet exercise weight loss are recommended. 02/13/2019-blood pressure today is 127/67 stable. Plan is to continue the present management. 02/14/2019-patient blood pressure today is 129/77. Stable. Weight loss was advised diet, exercise and diet modifications are advised. Dietary consult was also requested. 02/15/2019-blood pressure today is 146/73 stable. Plan is to continue the present management. (4) Hypothyroidism Is this a current diagnosis for this admission?: Yes (5) Hypercarbia Is this a current diagnosis for this admission?: Yes (6) Morbid obesity Is this a current diagnosis for this admission?: No (7) Pulmonary congestion Is this a current diagnosis for this admission?: Yes Plan: Chest x-ray shows possible congestion. She has clear breath sounds at the moment. BNP normal. Give her low-dose Lasix. Will pursue routine echo to evaluate cardiac function due to long-standing untreated GILMA. 02/11/2019-chest x-ray initially shows pulmonary congestion presently on Lasix 20 mg IV twice a day to repeat the chest x-ray tomorrow. 02/12/2019-chest x-ray shows cardiomegaly with persistent pulmonary congestion present on Lasix 40 mg IV twice a day. Echocardiogram was done yesterday shows EF of 55 to 60%. Normal left ventricular ejection fraction. Patient may have a chronic diastolic heart failure. 02/15/2019-chest x-ray shows cardiomegaly with pulmonary congestion echocardiogram was normal with EF of 55 to 60%. Patient may have a chronic diastolic heart failure. Presently on Lasix. Plan is to continue the present management. - Time Time Spent with patient: 25-34 minutes Medications reviewed and adjusted accordingly: Yes Anticipated discharge: Home
[2019-02-16] MEDS: LEVOTHYROXINE SODIUM 0.075 MG TABLET PO SCH (05:17)
[2019-02-16] MEDS: LEVOTHYROXINE SODIUM 0.1 MG TABLET PO SCH (05:17)
[2019-02-16] MEDS: HYDROCHLOROTHIAZIDE 25 MG TABLET PO SCH (09:06)
[2019-02-16] MEDS: LOSARTAN POTASSIUM 50 MG TABLET PO SCH (09:06)
[2019-02-16] MEDS: HEPARIN SOD (PORCINE) 5,000 UNIT/ML 1 ML SYRINGE SUBCUT SCH ×2 (09:06→21:13)
--- NOTE | 2019-02-16 10:31 | PDOC PROGRESS REPORT ---
Subjective Progress Note for:: 02/16/19 Subjective:: 63 year old female with a PMH of sleep apnea-untreated and not on CPAP, HTN, hypothyroidism and questionable COPD who was brought into to increased sleepiness. Patient says that she cannot really describe what she is feeling but she feels like she is "out of her comfort zone" in the past 4 days. She denies dizziness, shortness of breath or chest pain. She denies weakness. Her sister who is on the bedside says that she has noticed patient has been more sleepy than usual and has been less conversant at home. Upon encounter, patient awake and oriented x4. In the ER, work-up was remarkable for a VBG PCO2 of 97. 02/11/[id number]-udog-old female with history of morbid obesity, sleep apnea noncompliant with CPAP admitted with increasing sleepiness VBG done in the emergency room shows PCO2 of 97. Patient said this morning she is feeling better. Requesting for physical therapy. she uses 3 L of oxygen at home. no Acute events in the last 24 hours and patient is afebrile. 02/12/2019-no acute events in the last 24 hours. Patient is afebrile. Came in with confusion and some increased sleepiness because of the increased CO2. PCO2 the time of admission is a 97 today it was 72. Patient is alert and awake communicating well. She says she cannot afford a CPAP machine at home right now. personal financial planner is going to be consulted to assist in getting his CPAP supplies at home. The therapist try to do the pulmonary function tests the effort is unsuccessful because patient is unable to take deep breaths. 02/13/2019-no acute events in the last 24 hours. Patient is afebrile. We are going to repeat the ABG to check her PCO2 level. 02/14/20190526-91-litx-old female with history of morbid obesity BMI more than 65 and obesity associated hypoventilation syndrome admitted with CO2 retention with PCO2 of 97 leading to increasing sleepiness and drowsiness. She is requiring BiPAP during the hospital stay. ABG done yesterday shows PCO2 of 65. Patient i n my opinion need a CPAP at home. journeyman sheet metal worker is working to have the patient for the home supplies. 02/15/2019- 02/15/20192361-93-kanq-old female with morbid obesity hypoventilation syndrome admitted with increasing sleepiness and drowsiness on the VBG in the emergency room shows PCO2 of 97 she is requiring BiPAP in the hospital stay. Latest bicarb in the chemistry is 45. Improving. She needed either CPAP or BiPAP to go home. journeyman sheet metal worker Zehra spoke to me and it looks like pt is unable to get CPAP over the weekend. pt is comfortable in the chair communicating well. 02/16/[id number]-qwuj-old female admitted with increasing sleepiness and confusion most likely secondary to hypercapnia. On admission PCO2 is 97 in the chemistry yesterday bicarb is 45. Improving. We are waiting for the CPAP machine for the patient to take home. No acute events in the last 24 hours patient is afebrile. Reason For Visit: ACUTE HYPERCAPNIC RESPIRATORY FAILURE Physical Exam Vital Signs: Temp Pulse Resp BP Pulse Ox 98.2 F 62 16 148/72 H 99 02/16/19 08:00 02/16/19 08:00 02/16/19 08:00 02/16/19 08:00 02/16/19 08:00 Intake & Output 02/15/19 02/16/19 02/17/19 06:59 06:59 06:59 Intake Total 720 842 Balance 720 842 Weight 166.2 kg 167.7 kg General appearance: PRESENT: no acute distress, morbidly obese Head exam: PRESENT: atraumatic Eye exam: PRESENT: PERRLA Mouth exam: PRESENT: moist, tongue midline Teeth exam: PRESENT: poor dentation Neck exam: ABSENT: carotid bruit, JVD, lymphadenopathy, thyromegaly Respiratory exam: PRESENT: decreased breath sounds Cardiovascular exam: PRESENT: RRR. ABSENT: diastolic murmur, rubs, systolic murmur GI/Abdominal exam: PRESENT: normal bowel sounds, soft. ABSENT: distended, guarding, mass, organolmegaly, rebound, tenderness Rectal exam: PRESENT: deferred Extremities exam: PRESENT: full ROM, other - Touch of pedal edema with chronic skin changes in the lower extremities.. ABSENT: calf tenderness, clubbing, pedal edema Neurological exam: PRESENT: alert, awake, oriented to person, oriented to place, oriented to time, oriented to situation, CN II-XII grossly intact. ABSENT: motor sensory deficit Results Laboratory Results: 02/15/19 03:58 02/15/19 03:58 02/10/19 02/10/19 11:15 11:15 Troponin I < 0.012 NT-Pro-B Natriuret Pep 141 Impressions: Chest X-Ray 02/11/19 00:00 IMPRESSION: 1. As on the prior examination dated 02/10/2019, cardiomegaly. Stable appearing pulmonary vascular congestion. Assessment and Plan - Diagnosis (1) Acute hypercapnic respiratory failure Is this a current diagnosis for this admission?: Yes Plan: Likely secondary to untreated chronic GILMA. As mentioned, patient says that she supposed to be on CPAP but is unable to afford the co-pay hence is not on any at home. ABG ordered. Will place patient on BiPAP. Will consult discharge planning for assistance. Questionable COPD. Patient denies prior COPD or asthma or prior smoking. She says her PCP suspected that she has COPD. Will do a bedside spirometry. She will need a possible PfT outpatient. \\ 02/11/2019-patient admitted with acute hypercapnic respiratory failure with PCO2 of 97. It most likely secondary to morbid obesity associated with hypoventilation syndrome and noncompliance with CPAP. Presently she is using CPAP patient was strongly advised to use CPAP at home upon discharge. 02/12/20193391-61-zamx-old female morbid obesity with hypoventilation syndrome came to the emergency room with confusion increasing sleepiness PCO2 at the time of admission is 97 latest ABG indicate PCO2 is 72 improving. Plan to do the motor function test today but unsuccessful because patient is unable to take deep breaths. 02/13/20197542-79-dpkv-old female with morbid obesity with BMI of more than 62 and obesity DC associated hypoventilation syndrome syndrome admitted with increasing sleepiness and drowsiness. The latest ABG shows PCO2 of 72 improved from 97. She is doing much better unable to do the pulmonary function test yesterday. P raymond is to repeat the ABG today to check the PCO2 levels. 02/14/20196056-40-fbos-old female with morbid obesity and hypoventilation syndrome admitted with PCO2 of 97 she is supposed to be on CPAP at home but as per the patient it cost her too much and she cannot afford it. During the hospital stay she is on BiPAP most of the time. ABG done yesterday shows improvement of PCO2 65. journeyman sheet metal worker consult was requested to help the patient to get home supplies. 02/15/2019-no acute events in last 24 hours. Patient is afebrile. PCO2 in the chemistry is 45. Pulse ox is 99% on BiPAP. Patient is to go home on CPAP at home. 02/16/2019-no acute events in the last 24 hours. Patient is afebrile. PCO2 in the chemistry is 45 pulse ox is 97% on 30% oxygen on BiPAP. Plan is to discharge her home on CPAP probably. (2) Lethargy Is this a current diagnosis for this admission?: Yes (3) Hypertension Is this a current diagnosis for this admission?: Yes Plan: Resume home meds once verified. 02/11/2019-patient's blood pressure today is 149/67 borderline high systolic blood pressure. Plan is to continue to closely monitor the blood pressure and to resume the home medications. 02/12/2019-patient blood pressure today is 165/78. Borderline high patient is presently on low-sodium diet diet exercise weight loss are recommended. 02/13/2019-blood pressure today is 127/67 stable. Plan is to continue the present management. 02/14/2019-patient blood pressure today is 129/77. Stable. Weight loss was advised diet, exercise and diet modifications are advised. Dietary consult was also requested. 02/15/2019-blood pressure today is 146/73 stable. Plan is to continue the present management. 02/16/2019-patient blood pressure today is 123/58 stable. Plan is to continue the present management. Currently on losartan 100 mg p.o. daily and hydrochlorothiazide 25 mg p.o. daily plan is to continue the present management. (4) Hypothyroidism Is this a current diagnosis for this admission?: Yes (5) Hypercarbia Is this a current diagnosis for this admission?: Yes Plan: 02/11/2019-hypercapnia most likely secondary to morbid obesity associated with hypoventilation syndrome. Patient needs to be compliant with CPAP machine at home. 02/12/2019-hypercapnia is improving latest ABG indicates PCO2 of 72. Patient is continue to encourage to wear BiPAP most of the day and especially during the sleep. 02/13/2019-latest ABG shows PCO2 of 72 plan please repeat the ABG today and patient is presently on a BiPAP. 02/14/2019-ABG done yesterday shows PCO2 of 65 improved to the PCO2 levels at the time of admission. Hypercapnia most likely secondary to hypoventilation syndrome secondary to morbid obesity. 02/16/2019-plan is to repeat the ABG today and repeat the labs tomorrow. Hypercapnia is improving. (6) Morbid obesity Is this a current diagnosis for this admission?: No (7) Pulmonary congestion Is this a current diagnosis for this admission?: Yes Plan: Chest x-ray shows possible congestion. She has clear breath sounds at the moment. BNP normal. Give her low-dose Lasix. Will pursue routine echo to evaluate cardiac function due to long-standing untreated GILMA. 02/11/2019-chest x-ray initially shows pulmonary congestion presently on Lasix 20 mg IV twice a day to repeat the chest x-ray tomorrow. 02/12/2019-chest x-ray shows cardiomegaly with persistent pulmonary congestion present on Lasix 40 mg IV twice a day. Echocardiogram was done yesterday shows EF of 55 to 60%. Normal left ventricular ejection fraction. Patient may have a chronic diastolic heart failure. 02/15/2019-chest x-ray shows cardiomegaly with pulmonary congestion echocardiogram was normal with EF of 55 to 60%. Patient may have a chronic diastolic heart failure. Presently on Lasix. Plan is to continue the present management. 02/16/2019-patient came in with cardiomegaly and pulmonary vascular congestion echocardiogram with EF of 55 to 60%. She might have a chronic diastolic heart failure. Plan is to repeat the chest x-ray today. - Time Time Spent with patient: 25-34 minutes Medications reviewed and adjusted accordingly: Yes Anticipated discharge: Home
[2019-02-16 11:48] LABS: ARTERIAL BLOOD BASE EXCESS 12.6 mmol/L; ARTERIAL BLOOD H2CO3 2.08 mmol/L (1.05-1.35); ARTERIAL BLOOD HCO3 40.5 mmol/L (20-24); ARTERIAL BLOOD O2 SATURATION 96.4 % (94-98); ARTERIAL BLOOD PH 7.39 (7.35-7.45); ARTERIAL BLOOD PO2 89.3 mmHg (80-100); ARTERIAL BLOOD TOTAL CO2 42.6 mmol/L (21-25)
[2019-02-16 11:57] LABS: ARTERIAL BLOOD FIO2 3L
[2019-02-16 11:59] LABS: ARTERIAL BLOOD PCO2 69.1 mmHg (35-45)
--- NOTE | 2019-02-16 13:13 | RADIOLOGY REPORT (SQ) ---
EXAM DESCRIPTION: CHEST 2 VIEWS COMPLETED DATE/TIME: 02/16/2019 10:55 am REASON FOR STUDY: shortness of breath COMPARISON: AP chest 02/11/2019, 09/19/2017 EXAM PARAMETERS: NUMBER OF VIEWS: two views TECHNIQUE: Digital Frontal and Lateral radiographic views of the chest acquired. RADIATION DOSE: NA LIMITATIONS: none FINDINGS: LUNGS AND PLEURA: No opacities, masses or pneumothorax. No pleural effusion. MEDIASTINUM AND HILAR STRUCTURES: No masses or contour abnormalities. HEART AND VASCULAR STRUCTURES: Stable moderate to marked cardiomegaly BONES: No acute findings. HARDWARE: None in the chest. OTHER: No other significant finding. IMPRESSION: Stable moderate to marked cardiomegaly. No pleural effusions. No acute infiltrates. TECHNICAL DOCUMENTATION: JOB ID: [id number] [employer]- All Rights Reserved Reading location - IP/workstation name: [email or web address]
[2019-02-17 05:15] LABS: ALANINE AMINOTRANSFERASE 20 U/L (9-52); ALBUMIN 3.4 g/dL (3.5-5.0); ALKALINE PHOSPHATASE 56 U/L (38-126); ASPARTATE AMINO TRANSFERASE 17 U/L (14-36); BILIRUBIN,DIRECT 0.2 mg/dL (0.0-0.4); BILIRUBIN,TOTAL 0.3 mg/dL (0.2-1.3); BLOOD UREA NITROGEN 13 mg/dL (7-20); CHLORIDE 90 mmol/L (98-107); GLUCOSE 92 mg/dL (75-110); SODIUM 138.6 mmol/L (137-145); TOTAL PROTEIN 7.5 g/dL (6.3-8.2)
[2019-02-17] MEDS: LEVOTHYROXINE SODIUM 0.1 MG TABLET PO SCH (05:22)
[2019-02-17] MEDS: LEVOTHYROXINE SODIUM 0.075 MG TABLET PO SCH (05:22)
[2019-02-17 05:46] LABS: ANION GAP 6 (5-19)
[2019-02-17 05:47] LABS: CARBON DIOXIDE 43 mmol/L (22-30)
[2019-02-17] MEDS: LOSARTAN POTASSIUM 50 MG TABLET PO SCH (10:46)
[2019-02-17] MEDS: HYDROCHLOROTHIAZIDE 25 MG TABLET PO SCH (10:46)
[2019-02-17] MEDS: HEPARIN SOD (PORCINE) 5,000 UNIT/ML 1 ML SYRINGE SUBCUT SCH ×2 (10:47→21:21)
--- NOTE | 2019-02-17 16:49 | PDOC PROGRESS REPORT ---
Subjective Progress Note for:: 02/17/19 Subjective:: 63 year old female with a PMH of sleep apnea-untreated and not on CPAP, HTN, hypothyroidism and questionable COPD who was brought into to increased sleepiness. Patient says that she cannot really describe what she is feeling but she feels like she is "out of her comfort zone" in the past 4 days. She denies dizziness, shortness of breath or chest pain. She denies weakness. Her sister who is on the bedside says that she has noticed patient has been more sleepy than usual and has been less conversant at home. Upon encounter, patient awake and oriented x4. In the ER, work-up was remarkable for a VBG PCO2 of 97. 02/11/[id number]-znyd-old female with history of morbid obesity, sleep apnea noncompliant with CPAP admitted with increasing sleepiness VBG done in the emergency room shows PCO2 of 97. Patient said this morning she is feeling better. Requesting for physical therapy. she uses 3 L of oxygen at home. no Acute events in the last 24 hours and patient is afebrile. 02/12/2019-no acute events in the last 24 hours. Patient is afebrile. Came in with confusion and some increased sleepiness because of the increased CO2. PCO2 the time of admission is a 97 today it was 72. Patient is alert and awake communicating well. She says she cannot afford a CPAP machine at home right now. logistics planner is going to be consulted to assist in getting his CPAP supplies at home. The therapist try to do the pulmonary function tests the effort is unsuccessful because patient is unable to take deep breaths. 02/13/2019-no acute events in the last 24 hours. Patient is afebrile. We are going to repeat the ABG to check her PCO2 level. 02/14/[id number]-vqxu-old female with history of morbid obesity BMI more than 65 and obesity associated hypoventilation syndrome admitted with CO2 retention with PCO2 of 97 leading to increasing sleepiness and drowsiness. She is requiring BiPAP during the hospital stay. ABG done yesterday shows PCO2 of 65. Patient i n my opinion need a CPAP at home. break off worker is working to have the patient for the home supplies. 02/15/2019- 02/15/[id number]-qkxm-old female with morbid obesity hypoventilation syndrome admitted with increasing sleepiness and drowsiness on the VBG in the emergency room shows PCO2 of 97 she is requiring BiPAP in the hospital stay. Latest bicarb in the chemistry is 45. Improving. She needed either CPAP or BiPAP to go home. break off worker Zehra spoke to me and it looks like pt is unable to get CPAP over the weekend. pt is comfortable in the chair communicating well. 02/16/[id number]-qyts-old female admitted with increasing sleepiness and confusion most likely secondary to hypercapnia. On admission PCO2 is 97 in the chemistry yesterday bicarb is 45. Improving. We are waiting for the CPAP machine for the patient to take home. No acute events in the last 24 hours patient is afebrile. 02/17/[id number]-eekj-old female admitted with increasing sleepiness and drowsiness most likely secondary to CO2 retention on admission PCO2 97. With BiPAP in the hospital CO2 levels came down to 45. Patient is doing much better. break off worker is working with the pharmacy to get her home supplies. Reason For Visit: ACUTE HYPERCAPNIC RESPIRATORY FAILURE Physical Exam Vital Signs: Temp Pulse Resp BP Pulse Ox 98.6 F 56 L 16 105/61 94 02/17/19 00:00 02/17/19 02:00 02/17/19 07:48 02/17/19 00:00 02/17/19 07:48 Intake & Output 02/16/19 02/17/19 02/18/19 06:59 06:59 06:59 Intake Total 842 1010 Output Total 550 Balance 842 460 Weight 167.7 kg General appearance: PRESENT: no acute distress, morbidly obese Head exam: PRESENT: atraumatic Eye exam: PRESENT: PERRLA Mouth exam: PRESENT: moist, tongue midline Neck exam: ABSENT: carotid bruit, JVD, lymphadenopathy, thyromegaly Respiratory exam: PRESENT: decreased breath sounds Cardiovascular exam: PRESENT: RRR. ABSENT: diastolic murmur, rubs, systolic murmur Pulses: PRESENT: normal dorsalis pedis pul GI/Abdominal exam: PRESENT: normal bowel sounds, soft. ABSENT: distended, guarding, mass, organolmegaly, rebound, tenderness Rectal exam: PRESENT: deferred Extremities exam: PRESENT: full ROM. ABSENT: calf tenderness, clubbing, pedal edema Neurological exam: PRESENT: alert, awake, oriented to person, oriented to place, oriented to time, oriented to situation, CN II-XII grossly intact. ABSENT: motor sensory deficit Psychiatric exam: PRESENT: appropriate affect, normal mood. ABSENT: homicidal ideation, suicidal ideation Results Laboratory Results: 02/15/19 03:58 02/17/19 03:49 02/17/19 03:49 Sodium 138.6 Potassium 4.0 Chloride 90 L Carbon Dioxide 43 H* Anion Gap 6 BUN 13 Creatinine 0.87 Est GFR ( Amer) > 60 Est GFR (Non-Af Amer) > 60 Glucose 92 Calcium 9.0 Total Bilirubin 0.3 AST 17 ALT 20 Alkaline Phosphatase 56 Total Protein 7.5 Albumin 3.4 L 02/10/19 02/10/19 11:15 11:15 Troponin I < 0.012 NT-Pro-B Natriuret Pep 141 Impressions: Chest X-Ray 02/16/19 00:00 IMPRESSION: Stable moderate to marked cardiomegaly. No pleural effusions. No acute infiltrates. Assessment and Plan - Diagnosis (1) Acute hypercapnic respiratory failure Is this a current diagnosis for this admission?: Yes Plan: Likely secondary to untreated chronic GILMA. As mentioned, patient says that she supposed to be on CPAP but is unable to afford the co-pay hence is not on any at home. ABG ordered. Will place patient on BiPAP. Will consult discharge planning for assistance. Questionable COPD. Patient denies prior COPD or asthma or prior smoking. She says her PCP suspected that she has COPD. Will do a bedside spirometry. She will need a possible PfT outpatient. \\ 02/11/2019-patient admitted with acute hypercapnic respiratory failure with PCO2 of 97. It most likely secondary to morbid obesity associated with hypoventilation syndrome and noncompliance with CPAP. Presently she is using CPAP patient was strongly advised to use CPAP at home upon discharge. 02/12/[id number]-izgn-old female morbid obesity with hypoventilation syndrome came to the emergency room with confusion increasing sleepiness PCO2 at the time of admission is 97 latest ABG indicate PCO2 is 72 improving. Plan to do the motor function test today but unsuccessful because patient is unable to take deep breaths. 02/13/20197422-47-dmue-old female with morbid obesity with BMI of more than 62 and obesity DC associated hypoventilation syndrome syndrome admitted with increasing sleepiness and drowsiness. The latest ABG shows PCO2 of 72 improved from 97. She is doing much better unable to do the pulmonary function test yesterday. Plan is to repeat the ABG today to check the PCO2 levels. 02/14/20199651-95-lehx-old female with morbid obesity and hypoventilation syndrome admitted with PCO2 of 97 she is supposed to be on CPAP at home but as per the patient it cost her too much and she cannot afford it. During the hospital stay she is on BiPAP most of the time. ABG done yesterday shows improvement of PCO2 65. break off worker consult was requested to help the patient to get home supplies. 02/15/2019-no acute events in last 24 hours. Patient is afebrile. PCO2 in the chemistry is 45. Pulse ox is 99% on BiPAP. Patient is to go home on CPAP at home. 02/16/2019-no acute events in the last 24 hours. Patient is afebrile. PCO2 in the chemistry is 45 pulse ox is 97% on 30% oxygen on BiPAP. Plan is to discharge her home on CPAP probably. 02/17/2019-no acute events in the last 24 hours. Patient is afebrile. PCO2 in the chemistry is 43. Waiting for the home equipment for the patient to be discharged. (2) Lethargy Is this a current diagnosis for this admission?: Yes Plan: Likely related to hypercarbia. 02/11/2019-lethargy due to hypercapnia is resolved. Patient is alert awake oriented communicating well. 02/12/2019-lethargy is resolved. Patient is alert awake communicating well. 02/17/2019-this elderly female admitted with lethargy and confusion drowsiness most likely secondary to CO2 retention due to obesity associated hypoventilation syndrome. Patient is doing well on BiPAP. Altered mental status resolved. (3) Hypertension Is this a current diagnosis for this admission?: Yes Plan: Resume home meds once verified. 02/11/2019-patient's blood pressure today is 149/67 borderline high systolic blood pressure. Plan is to continue to closely monitor the blood pressure and to resume the home medications. 02/12/2019-patient blood pressure today is 165/78. Borderline high patient is presently on low-sodium diet diet exercise weight loss are recommended. 02/13/2019-blood pressure today is 127/67 stable. Plan is to continue the present management. 02/14/2019-patient blood pressure today is 129/77. Stable. Weight loss was advised diet, exercise and diet modifications are advised. Dietary consult was also requested. 02/15/2019-blood pressure today is 146/73 stable. Plan is to continue the present management. 02/16/2019-patient blood pressure today is 123/58 stable. Plan is to continue the present management. Currently on losartan 100 mg p.o. daily and hydrochlorothiazide 25 mg p.o. daily plan is to continue the present management. 02/17/2019-patient blood pressure today is 105/61. Stable. Plan is to continue the present management. (4) Hypothyroidism Is this a current diagnosis for this admission?: Yes (5) Hypercarbia Is this a current diagnosis for this admission?: Yes Plan: 02/11/2019-hypercapnia most likely secondary to morbid obesity associated with hypoventilation syndrome. Patient needs to be compliant with CPAP machine at home. 02/12/2019-hypercapnia is improving latest ABG indicates PCO2 of 72. Patient is continue to encourage to wear BiPAP most of the day and especially during the sleep. 02/13/2019-latest ABG shows PCO2 of 72 plan please repeat the ABG today and patient is presently on a BiPAP. 02/14/2019-ABG done yesterday shows PCO2 of 65 improved to the PCO2 levels at the time of admission. Hypercapnia most likely secondary to hypoventilation syndrome secondary to morbid obesity. 02/16/2019-plan is to repeat the ABG today and repeat the labs tomorrow. Hypercapnia is improving. 02/17/2019-hypercapnia is improving. (6) Morbid obesity Is this a current diagnosis for this admission?: No (7) Pulmonary congestion Is this a current diagnosis for this admission?: Yes - Time Time Spent with patient: 25-34 minutes Medications reviewed and adjusted accordingly: Yes Anticipated discharge: Home
[2019-02-18] MEDS: LEVOTHYROXINE SODIUM 0.1 MG TABLET PO SCH (05:09)
[2019-02-18] MEDS: LEVOTHYROXINE SODIUM 0.075 MG TABLET PO SCH (05:09)
[2019-02-18] MEDS: LOSARTAN POTASSIUM 50 MG TABLET PO SCH (12:26)
[2019-02-18] MEDS: HEPARIN SOD (PORCINE) 5,000 UNIT/ML 1 ML SYRINGE SUBCUT SCH ×2 (12:26→21:28)
[2019-02-18] MEDS: HYDROCHLOROTHIAZIDE 25 MG TABLET PO SCH (12:26)
--- NOTE | 2019-02-18 16:52 | PDOC PROGRESS REPORT ---
Subjective Progress Note for:: 02/18/19 Subjective:: 02/18: Reassumed care today. Course and chart reviewed. He is a 62-year-old female with a PMH of sleep apnea-untreated and not on CPAP, HTN, hypothyroidism and questionable COPD who was brought into to increased sleepiness. Admitted for acute on chronic hypercapnic respiratory failure and initially was on BiPAP. Patient did have gradual significant improvement of her mentation. She was also deemed to have a possible obesity related hypoventilation. However, even with BiPAP, she did have continued elevated PCO2 levels. Due to a combination of likely hypoventilation syndrome from obesity and untreated GILMA, patient would benefit from noninvasive ventilation therapy. Discussed with discharge planning about working on getting her a Trilogy. Discussed with Dr. Ramirez who will see the patient in his clinic when she gets discharged. Appreciate recommendations about trilogy settings. Reason For Visit: ACUTE HYPERCAPNIC RESPIRATORY FAILURE Physical Exam Vital Signs: Temp Pulse Resp BP Pulse Ox 97.7 F 61 16 146/79 H 100 02/18/19 12:17 02/18/19 12:17 02/18/19 12:17 02/18/19 12:17 02/18/19 12:17 Intake & Output 02/17/19 02/18/19 02/19/19 06:59 06:59 06:59 Intake Total 1010 460 240 Output Total 550 Balance 460 460 240 Weight 363 lb 8.676 oz General appearance: PRESENT: no acute distress, morbidly obese Head exam: PRESENT: atraumatic, normocephalic Eye exam: PRESENT: conjunctiva pink, EOMI, PERRLA. ABSENT: scleral icterus Ear exam: PRESENT: normal external ear exam Mouth exam: PRESENT: moist, tongue midline Neck exam: ABSENT: carotid bruit, JVD, lymphadenopathy, thyromegaly Respiratory exam: PRESENT: clear to auscultation yessenia. ABSENT: rales, rhonchi, wheezes Cardiovascular exam: PRESENT: RRR. ABSENT: diastolic murmur, rubs, systolic murmur GI/Abdominal exam: PRESENT: normal bowel sounds, soft. ABSENT: distended, guarding, mass, organolmegaly, rebound, tenderness Rectal exam: PRESENT: deferred Neurological exam: PRESENT: alert, awake, oriented to person, oriented to place, oriented to time, oriented to situation, CN II-XII grossly intact. ABSENT: motor sensory deficit Results Laboratory Results: 02/15/19 03:58 02/17/19 03:49 02/10/19 02/10/19 11:15 11:15 Troponin I < 0.012 NT-Pro-B Natriuret Pep 141 Impressions: Chest X-Ray 02/16/19 00:00 IMPRESSION: Stable moderate to marked cardiomegaly. No pleural effusions. No acute infiltrates. Assessment and Plan - Diagnosis (1) Acute hypercapnic respiratory failure Is this a current diagnosis for this admission?: Yes Plan: Likely secondary to untreated chronic GILMA and obesity related hypoventilation. Patient may benefit from noninvasive ventilation therapy. Discussed with discharge planning about requesting for trilogy for patient. Discussed with Dr. Ramirez who will see patient later when she gets discharges and recommended initial trilogy settings. (2) Hypercarbia Is this a current diagnosis for this admission?: Yes Plan: As per #1. (3) Hypertension Is this a current diagnosis for this admission?: Yes Plan: Controlled. Continue losartan and hydrochlorothiazide. (4) Hypothyroidism Is this a current diagnosis for this admission?: Yes Plan: Continue Synthroid. (5) Lethargy Is this a current diagnosis for this admission?: Yes Plan: Likely related to hypercarbia. Resolved. - Time Time Spent with patient: 15-24 minutes
[2019-02-19] MEDS: LEVOTHYROXINE SODIUM 0.075 MG TABLET PO SCH (05:41)
[2019-02-19] MEDS: LEVOTHYROXINE SODIUM 0.1 MG TABLET PO SCH (05:42)
[2019-02-19] MEDS: HYDROCHLOROTHIAZIDE 25 MG TABLET PO SCH (11:55)
[2019-02-19] MEDS: HEPARIN SOD (PORCINE) 5,000 UNIT/ML 1 ML SYRINGE SUBCUT SCH ×3 (11:55→22:19)
[2019-02-19] MEDS: LOSARTAN POTASSIUM 50 MG TABLET PO SCH (11:55)
--- NOTE | 2019-02-19 18:35 | PDOC PROGRESS REPORT ---
Subjective Progress Note for:: 02/19/19 Subjective:: 02/18: Reassumed care today. Course and chart reviewed. He is a 62-year-old female with a PMH of sleep apnea-untreated and not on CPAP, HTN, hypothyroidism and questionable COPD who was brought into to increased sleepiness. Admitted for acute on chronic hypercapnic respiratory failure and initially was on BiPAP. Patient did have gradual significant improvement of her mentation. She was also deemed to have a possible obesity related hypoventilation. However, even with BiPAP, she did have continued elevated PCO2 levels. Due to a combination of likely hypoventilation syndrome from obesity and untreated GILMA, patient would benefit from noninvasive ventilation therapy. Discussed with discharge planning about working on getting her a Trilogy. Discussed with Dr. Ramirez who will see the patient in his clinic when she gets discharged. Appreciate recommendations about trilogy settings. 02/19: No acute event overnight. She denies any acute complaint. Awaiting acquisition of Trilogy for home. Reason For Visit: ACUTE HYPERCAPNIC RESPIRATORY FAILURE Physical Exam Vital Signs: Temp Pulse Resp BP Pulse Ox 98.1 F 66 16 140/82 H 96 02/19/19 16:38 02/19/19 16:38 02/19/19 16:38 02/19/19 16:38 02/19/19 16:38 Intake & Output 02/18/19 02/19/19 02/20/19 06:59 06:59 06:59 Intake Total 460 820 Balance 460 820 Weight 363 lb 8.676 oz 363 lb 8.676 oz General appearance: PRESENT: no acute distress, morbidly obese Head exam: PRESENT: atraumatic, normocephalic Eye exam: PRESENT: conjunctiva pink, EOMI, PERRLA. ABSENT: scleral icterus Ear exam: PRESENT: normal external ear exam Mouth exam: PRESENT: moist, tongue midline Neck exam: ABSENT: carotid bruit, JVD, lymphadenopathy, thyromegaly Respiratory exam: PRESENT: clear to auscultation yessenia. ABSENT: rales, rhonchi, wheezes Cardiovascular exam: PRESENT: RRR. ABSENT: diastolic murmur, rubs, systolic murmur Pulses: PRESENT: normal dorsalis pedis pul GI/Abdominal exam: PRESENT: normal bowel sounds, soft. ABSENT: distended, guarding, mass, organolmegaly, rebound, tenderness Rectal exam: PRESENT: deferred Extremities exam: PRESENT: +1 edema Neurological exam: PRESENT: alert, awake, oriented to person, oriented to place, oriented to time, oriented to situation, CN II-XII grossly intact. ABSENT: motor sensory deficit Results Laboratory Results: 02/15/19 03:58 02/17/19 03:49 02/10/19 02/10/19 11:15 11:15 Troponin I < 0.012 NT-Pro-B Natriuret Pep 141 Impressions: Chest X-Ray 02/16/19 00:00 IMPRESSION: Stable moderate to marked cardiomegaly. No pleural effusions. No acute infiltrates. Assessment and Plan - Diagnosis (1) Acute hypercapnic respiratory failure Is this a current diagnosis for this admission?: Yes Plan: Likely secondary to untreated chronic GILMA and obesity related hypoventilation. Patient may benefit from noninvasive ventilation therapy. Discussed with discharge planning about requesting for trilogy for patient. Discussed with Dr. Ramirez who will see patient later when she gets discharges and recommended initial trilogy settings. 02/19: Awaiting acquisition of Trilogy for home. (2) Hypercarbia Is this a current diagnosis for this admission?: Yes Plan: As per #1. (3) Hypertension Is this a current diagnosis for this admission?: Yes Plan: Controlled. Continue losartan and hydrochlorothiazide. (4) Hypothyroidism Is this a current diagnosis for this admission?: Yes Plan: Continue Synthroid. (5) Lethargy Is this a current diagnosis for this admission?: Yes Plan: Likely related to hypercarbia. Resolved. - Time Time Spent with patient: 15-24 minutes
[2019-02-20 00:12] VITALS: BP 134/57
[2019-02-20] MEDS: LEVOTHYROXINE SODIUM 0.1 MG TABLET PO SCH (05:59)
[2019-02-20] MEDS: LEVOTHYROXINE SODIUM 0.075 MG TABLET PO SCH (05:59)
--- NOTE | 2019-02-21 18:10 | PDOC DISCHARGE SUMMARY ---
General - Admit/Disc Date/PCP Admission Date/Primary Care Provider: 02/10/19 13:31 PAU GALO MD Discharge Date: 02/20/19 - Discharge Diagnosis (1) Acute hypercapnic respiratory failure Is this a current diagnosis for this admission?: Yes (2) Hypercarbia Is this a current diagnosis for this admission?: Yes (3) Hypertension Is this a current diagnosis for this admission?: Yes (4) Hypothyroidism Is this a current diagnosis for this admission?: Yes (5) Lethargy Is this a current diagnosis for this admission?: Yes - Additional Information Resuscitation Status: Full Code Discharge Diet: Regular Discharge Activity: Activity As Tolerated, Balance Activity w/Rest Prescriptions: Levothyroxine Sodium [Synthroid] 175 mcg PO Q6AM #60 tablet Telmisartan/Hydrochlorothiazid [Micardis HCT 80-25 mg Tablet] 1 tab PO DAILY #60 tablet Home Medications: Levothyroxine Sodium [Synthroid] 175 mcg PO Q6AM #60 tablet 02/19/19 Telmisartan/Hydrochlorothiazid [Micardis HCT 80-25 mg Tablet] 1 tab PO DAILY #60 tablet 02/19/19 History of Present Illness History of Present Illness: ROSLYN RANGEL is a 63 year old female with a PMH of sleep apnea-untreated and not on CPAP, HTN, hypothyroidism and questionable COPD who was brought into to increased sleepiness. Patient says that she cannot really describe what she is feeling but she feels like she is "out of her comfort zone" in the past 4 days. She denies dizziness, shortness of breath or chest pain. She denies weakness. Her sister who is on the bedside says that she has noticed patient has been more sleepy than usual and has been less conversant at home. Upon encounter, patient awake and oriented x4. In the ER, work-up was remarkable for a VBG PCO2 of 97. Hospital Course Hospital Course: This is a 62-year-old female with a PMH of sleep apnea-untreated and not on CPAP, HTN, hypothyroidism and questionable COPD who was brought into to increased sleepiness. She was admitted for acute on chronic hypercapnic respiratory failure and initially was on BiPAP. Patient did have gradual significant improvement of her mentation. She was also deemed to have a possible obesity related hypoventilation. However, even with BiPAP, she did have continued elevated PCO2 levels albeit improved from admission. Due to a combination of likely hypoventilation syndrome from obesity and untreated GILMA, patient would benefit from noninvasive ventilation therapy. Discussed with discharge planning about working on getting her a Trilogy. Discussed with Dr. Ramirez who will see the patient in his clinic when she gets discharged. Her course hospital stay was only prolonged due to a long wait for insurance approval for her non invasive ventilation. She will be discharged home on trilogy. Physical Exam Vital Signs: Temp Pulse Resp BP Pulse Ox 98.2 F 63 18 134/57 H 94 02/20/19 00:00 02/20/19 02:00 02/20/19 07:58 02/20/19 00:00 02/20/19 03:55 Intake & Output 02/20/19 02/21/19 02/22/19 06:59 06:59 06:59 Intake Total 1560 Balance 1560 Weight 363 lb 8.676 oz General appearance: PRESENT: morbidly obese, well-developed, well-nourished Head exam: PRESENT: atraumatic, normocephalic Eye exam: PRESENT: conjunctiva pink, EOMI, PERRLA. ABSENT: scleral icterus Ear exam: PRESENT: normal external ear exam Mouth exam: PRESENT: moist, tongue midline Neck exam: ABSENT: carotid bruit, JVD, lymphadenopathy, thyromegaly Respiratory exam: PRESENT: clear to auscultation yessenia. ABSENT: rales, rhonchi, wheezes Cardiovascular exam: PRESENT: RRR. ABSENT: diastolic murmur, rubs, systolic murmur Pulses: PRESENT: normal dorsalis pedis pul Vascular exam: PRESENT: normal capillary refill GI/Abdominal exam: PRESENT: normal bowel sounds, soft. ABSENT: distended, guarding, mass, organolmegaly, rebound, tenderness Rectal exam: PRESENT: deferred Neurological exam: PRESENT: alert, awake, oriented to person, oriented to place, oriented to time, oriented to situation, CN II-XII grossly intact. ABSENT: motor sensory deficit Results Laboratory Results: 02/15/19 03:58 02/17/19 03:49 02/10/19 02/10/19 11:15 11:15 Troponin I < 0.012 NT-Pro-B Natriuret Pep 141 Impressions: Chest X-Ray 02/16/19 00:00 IMPRESSION: Stable moderate to marked cardiomegaly. No pleural effusions. No acute infiltrates. Qualifiers - * PATIENT BEING DISCHARGED WITH ANY OF THE FOLLOWING DIAGNOSIS: No Acute Heart Failure - Is this a Heart Failure Patient?: No LVEF < 40%?: No- if no continue to question #3 3. Anticoagulant therapy for permanect/persistent/paraoxysmal Afib or Aflutter: N/A
== END 2019-02-20 09:30 | disposition home or self-care (01) | DRG 189 ==
LOC: ER 09:38 → EH 13:31 → INTOOBSV 13:31 → EH 13:31 → UNDOADMOB 13:31 → OBSVTOIN 13:31 → 5 16:24
PROVIDERS: ADMIT Internal Medicine; ATTEND Internal Medicine
DX: J96.22 Acute and chronic respiratory failure with hypercapnia (principal); E66.2 Morbid (severe) obesity with alveolar hypoventilation; Z68.44 Body mass index [BMI] 60.0-69.9, adult; J44.9 Chronic obstructive pulmonary disease, unspecified; E03.9 Hypothyroidism, unspecified; I10 Essential (primary) hypertension; R53.83 Other fatigue; Z99.81 Dependence on supplemental oxygen; Z91.19 Patient's noncompliance with other medical treatment and regimen
CPT/HCPCS: 36415; 36600; 71045; 71046; 80048; 80053; 81001; 82803; 83735; 83880; 84439; 84443; 84481; 84484; 85025; 93005; 93010; 93306; 94660; 99291; J1644; J1940; J3490

== ENCOUNTER 2019-07-29 15:23 | Day surgery (SDC) | payer OTHER ==
[2019-07-29] MEDS ORDERED: ONDANSETRON HCL INJ/PF 4 MG/2 ML SDV ONE (15:31)
[2019-07-29] MEDS ORDERED: MIDAZOLAM 2 MG/2 ML INJ ONE (15:31)
[2019-07-29] MEDS ORDERED: DIPHENHYDRAMINE HCL 50 MG/ML VIAL ONE (15:31)
[2019-07-29] MEDS ORDERED: NALOXONE HCL INJ/PF 0.4 MG/1 ML SDV ONE (15:31)
[2019-07-29] MEDS ORDERED: FENTANYL CITRATE INJ/PF 100 MCG/2 ML AMPUL ONE (15:31)
[2019-07-29] MEDS ORDERED: FLUMAZENIL INJ 0.5 MG/5 ML VIAL ONE (15:32)
[2019-07-29] MEDS ORDERED: GLUCAGON,HUMAN RECOMB 1 MG INJ ONE (15:32)
[2019-07-29] MEDS ORDERED: EPINEPHRINE INJ 1 MG/10 ML DISP.SYRIN ONE (15:32)
--- NOTE | 2019-07-29 17:04 | Operative Report ---
Operative Report DATE OF SURGERY: 07/29/19 Operative Report: Pre-op diagnosis: Colon cancer screening Post-op diagnosis: 1. Sigmoid colon polyps 2. Sigmoid diverticulosis 3. Status post right hemicolectomy Surgery: Colonoscopy with polypectomy Medications: Versed 2mg, Fentanyl 75 Mcg IV push Tissue removed: Sigmoid polyps Procedure: After informed consent obtained from patient, conscious sedation was achieved. A digital rectal examination was performed and this was unremarkable. The colonoscope was inserted into the rectum and advanced to the cecum. The appendiceal orifice and the terminal ileum were both identified. The mucosa was examined into details as the colonoscope was slowly pulled out of the patient. The endoscope was retroflexed in the rectum. Patient tolerated the procedure well. Findings Anastomosis: This was situated at the distal transverse/proximal descending colon-60 cm from the anal verge Transverse colon: Normal Descending colon: Normal Sigmoid colon: Multiple diverticuli were noted. Two 4 mm polyps were removed with the cold snare. Rectum: Normal except for internal hemorrhoids Plan: Await pathology. High-fiber diet. Follow-up colonoscopy in 5 years if polyps are adenomatous OPERATION: .
[2019-07-29 18:01] VITALS: BP 142/67
== END 2019-07-29 18:20 | disposition home or self-care (01) ==
LOC: END 15:23
PROVIDERS: ATTEND Internal Medicine Gastroenterology
DX: Z12.11 Encounter for screening for malignant neoplasm of colon (principal); K57.30 Diverticulosis of large intestine without perforation or abscess without bleeding; K63.5 Polyp of colon; K64.8 Other hemorrhoids; J44.9 Chronic obstructive pulmonary disease, unspecified; I10 Essential (primary) hypertension; E03.9 Hypothyroidism, unspecified; Z79.899 Other long term (current) drug therapy; Z99.81 Dependence on supplemental oxygen
CPT/HCPCS: 45385; 88305 ×2; J2250; J3010; J0171; J1200; J1610; J2310; J2405; J3490